=== PATIENT | female | born 1955 | race African-American/Black ===

== ENCOUNTER 2017-02-24 13:52 | Inpatient (IN) | payer MEDICAID, OTHER ==
--- NOTE | 2017-02-24 14:14 | EDPHY ---
H & P Stated Complaint: shaking, N and V starting today, type II DM, posterior DAMON Time Seen by Provider: 02/24/17 14:14 - Medical/Surgical History Hx Asthma: Yes Hx Chronic Respiratory Disease: Yes Hx Diabetes: Yes Hx Cardiac Disease: No Hx Renal Disease: No Hx Cirrhosis: No Hx Alcoholism: No Hx HIV/AIDS: No Hx Splenectomy or Spleen Trauma: No Other PMH: boarderline diabetic, asthma, HTN, mental health. PSH: hysterectomy - Social History Smoking Status: Never smoked Constitutional: Initial Vital Signs Heart Rate 77 02/24/17 14:02 Respiratory Rate 16 02/24/17 14:02 Blood Pressure 135/82 H 02/24/17 14:02 O2 Sat (%) 96 02/24/17 14:02 O2 Delivery Mode Room Air Allergies/Adverse Reactions: No Known Allergies Allergy (Unverified 04/17/15 13:58) Home Medications: Medication Instructions Recorded Albuterol [Proventil Inhaler HFA 2 puffs IH Q4 PRN 04/17/15 (*)] Atorvastatin Calcium [Lipitor 20 20 mg PO DAILY 04/17/15 mg (*)] Cholecalciferol Vit D3 [Vitamin D3 1,000 units PO DAILY 04/17/15 (*)] Ferrous Sulfate [Ferrous Sulf 325 325 mg PO DAILY 04/17/15 MG (*)] Fluoxetine HCl [Prozac 40 mg] 80 mg PO DAILY 04/17/15 Fluticasone/Salmeter 500/50Mcg 1 puffs IH BID 04/17/15 [Advair 500/50 (*)] Herbals/Supplements -Info Only 1 ea PO DAILY 04/17/15 Ibuprofen [Motrin (*)] 800 mg PO DAILY PRN 04/17/15 OXcarbazepine [Trileptal 300mg (*)] 600 mg PO DAILY 04/17/15 [place]-3 Fatty Acids [Fish Oil 1000 1,000 mg PO BID 04/17/15 mg (*)] Oxymetazoline HCl [Vicks Sinex] 1 spray EACHNARE DAILY PRN 04/17/15 buPROPion [Wellbutrin 75mg (*)] 75 mg PO DAILY 04/17/15 metFORMIN HCL [Glucophage 500 mg 500 mg PO DAILY 04/17/15 (*)] Cetirizine [ZyrTEC 10 mg (*)] 10 mg PO HS #30 tab 04/18/15 Ipratropium/Albuterol [Duoneb (*)] 3 ml IH QID #20 deyvial 04/18/15 amLODIPine BESYLATE [Norvasc 2.5 2.5 mg PO DAILY #30 tab 04/19/15 mg (*)] predniSONE 40 mg PO DAILY #6 tablet 04/19/15 Medical Decision Making ED Course/Re-evaluation: CHIEF COMPLAINT: Nausea, vomiting, shakiness. HISTORY OF PRESENT ILLNESS: The patient is a 61 y/o female who complains of nausea, vomiting, and shakiness onset this morning. She has a history of diabetes, hypertension, asthma, and obesity. She started to feel nauseated at work and subsequently had 3 episodes of bilious vomiting. Her symptoms continued to worsen and were associated with chills, diaphoresis, dizziness, and an intermittent throbbing occipital and frontal headache. Denies change in bowel movements, urinary symptoms, abdominal pain, dyspnea, numbness or weakness in limbs. She denies drinking too much water and has been eating and drinking normally. Denies significant medication changes. She notes she had bilateral lower leg pain that began 1 week ago, which she attributes to her varicose veins. She has been drinking about 8-16 oz of tonic water daily for her restless legs, which she discontinued 3 days ago. REVIEW OF SYSTEMS: A 10 point review of systems was performed and is negative with the exception of the elements mentioned in the history of present illness. PHYSICAL EXAM: HR, BP, O2 Sat, RR. Temp noted General Appearance: Obese, alert, well hydrated, appropriate, and non-toxic appearing. Head: Atraumatic without scalp tenderness or obvious injury Eyes: Pupils equal, round, reactive to light and accommodation, EOMI, no trauma , no injection. Nose: Atraumatic, no rhinorrhea, clear. Throat: Mucus membranes moist. Neck: Supple. Respiratory: No retractions, no distress, no wheezes, and no accessory muscle use. Lungs are clear to auscultation bilaterally. Cardiovascular: Regular rate and rhythm, no murmurs, rubs, or gallops. Good capillary refill all extremities. Gastrointestinal: Abdomen is soft, nontender, non-distended, no masses, no rebound, no guarding, no peritoneal signs. Musculoskeletal: Normal active ROM of all extremities, atraumatic. Neurological: Alert, appropriate, and interactive. Non-focal neuro. Skin: No rashes, good turgor, no nodules on palpation. Past medical history: Hyponatremia, diabetic, hemorrhoids, hypertension, asthma , varicose veins Past surgical history: Hysterectomy Family history: Noncontributory Social history: Employed, lives in [place], PCP: [facility] Prior medical records reviewed from admission on 04/17/15 for cough and hyponatremia. DIFFERENTIAL DIAGNOSIS: The differential diagnosis for the patient's nausea and vomiting included but was not limited to hyponatremia, gastroenteritis, gastritis, appendicitis, and medication side effect. MEDICAL DECISION MAKING: The patient is an obese 61 y/o female who presents with a one day history of nausea, vomiting, and general malaise. Her exam is unremarkable. Initial ISTAT shows hyponatremia at 123; we will be cautious with fluids to ensure her sodium repletion is slow. Plan for IV, lab work including: UA with osmolality. She will require admission for her hyponatremia and sodium repletion. 1520 Spoke with hospitalist service, Dr. Michael accepts admission of this patient for hyponatremia. - Data Points Laboratory Results: Laboratory Results 02/24/17 14:20 02/24/17 14:20 02/24/17 02/24/17 02/24/17 14:56 14:20 14:20 WBC 3.86 10^3/uL 10^3/uL (3.80-9.50) RBC 4.26 10^6/uL 10^6/uL (4.18-5.33) Hgb 13.1 g/dL g/dL (12.6-16.3) POC Hgb Hct 37.2 % L % (38.0-47.0) POC Hct MCV 87.3 fL fL (81.5-99.8) MCH 30.8 pg pg (27.9-34.1) MCHC 35.2 g/dL g/dL (32.4-36.7) RDW 12.8 % % (11.5-15.2) Plt Count 265 10^3/uL 10^3/uL (150-400) MPV 8.5 fL L fL (8.7-11.7) Neut % (Auto) 58.0 % % (39.3-74.2) Lymph % (Auto) 27.2 % % (15.0-45.0) [place] % (Auto) 8.8 % % (4.5-13.0) Eos % (Auto) 4.7 % % (0.6-7.6) Baso % (Auto) 1.0 % % (0.3-1.7) Nucleat RBC Rel Count 0.0 % % (0.0-0.2) Absolute Neuts (auto) 2.24 10^3/uL 10^3/uL (1.70-6.50) Absolute Lymphs (auto) 1.05 10^3/uL 10^3/uL (1.00-3.00) Absolute Monos (auto) 0.34 10^3/uL 10^3/uL (0.30-0.80) Absolute Eos (auto) 0.18 10^3/uL 10^3/uL (0.03-0.40) Absolute Basos (auto) 0.04 10^3/uL 10^3/uL (0.02-0.10) Absolute Nucleated RBC 0.00 10^3/uL 10^3/uL (0-0.01) Immature Gran % 0.3 % % (0.0-1.1) Immature Gran # 0.01 10^3/uL 10^3/uL (0.00-0.10) POC Sodium Sodium 120 mEq/L L mEq/L (134-144) POC Potassium Potassium 3.7 mEq/L mEq/L (3.5-5.2) POC Chloride Chloride 83 mEq/L L mEq/L (97-110) Carbon Dioxide 26 mEq/l mEq/l (22-31) Anion Gap 11 mEq/L mEq/L (8-16) POC BUN BUN 13 mg/dL mg/dL (7-23) Creatinine 0.7 mg/dL mg/dL (0.6-1.0) POC Creatinine Estimated GFR > 60 Glucose 96 mg/dL mg/dL (70-100) POC Glucose Calcium 9.8 mg/dL mg/dL (8.5-10.4) Total Bilirubin 0.5 mg/dL mg/dL (0.1-1.4) Conjugated Bilirubin 0.4 mg/dL mg/dL (0.0-0.5) Unconjugated Bilirubin 0.1 mg/dL mg/dL (0.0-1.1) AST 34 IU/L IU/L (14-46) ALT 54 IU/L H IU/L (9-52) Alkaline Phosphatase 102 IU/L IU/L (38-126) Total Protein 7.1 g/dL g/dL (6.3-8.2) Albumin 4.5 g/dL g/dL (3.5-5.0) Lipase 68.0 IU/L IU/L (23-300) Urine Color ALEXANDER Urine Appearance MODERATELY TURBID Urine pH 8.0 H (5.0-7.5) Ur Specific [place] 1.011 (1.002-1.030) Urine Protein NEGATIVE (NEGATIVE) Urine Ketones NEGATIVE (NEGATIVE) Urine Blood NEGATIVE (NEGATIVE) Urine Nitrate NEGATIVE (NEGATIVE) Urine Bilirubin NEGATIVE (NEGATIVE) Urine Urobilinogen NEGATIVE EU EU (0.2-1.0) Ur Leukocyte Esterase NEGATIVE (NEGATIVE) Urine Glucose NEGATIVE (NEGATIVE) 02/24/17 14:19 WBC RBC Hgb POC Hgb 15.0 gm/dL gm/dL (12.6-16.3) Hct POC Hct 44 % % (38-47) MCV MCH MCHC RDW Plt Count MPV Neut % (Auto) Lymph % (Auto) [place] % (Auto) Eos % (Auto) Baso % (Auto) Nucleat RBC Rel Count Absolute Neuts (auto) Absolute Lymphs (auto) Absolute Monos (auto) Absolute Eos (auto) Absolute Basos (auto) Absolute Nucleated RBC Immature Gran % Immature Gran # POC Sodium 123 mEq/L L mEq/L (134-144) Sodium POC Potassium 3.6 mEq/L mEq/L (3.3-5.0) Potassium POC Chloride 83 mEq/L L mEq/L (97-110) Chloride Carbon Dioxide Anion Gap POC BUN 12 mg/dL mg/dL (7-23) BUN Creatinine POC Creatinine 0.7 mg/dL mg/dL (0.6-1.0) Estimated GFR Glucose POC Glucose 104 mg/dL H mg/dL (70-100) Calcium Total Bilirubin Conjugated Bilirubin Unconjugated Bilirubin AST ALT Alkaline Phosphatase Total Protein Albumin Lipase Urine Color Urine Appearance Urine pH Ur Specific [place] Urine Protein Urine Ketones Urine Blood Urine Nitrate Urine Bilirubin Urine Urobilinogen Ur Leukocyte Esterase Urine Glucose Point of Care Test Results: 02/24/17 14:19 POC Sodium 123 L POC Potassium 3.6 POC Chloride 83 L POC BUN 12 POC Creatinine 0.7 POC Glucose 104 H Departure - Departure Disposition: [facility] Inpatient Acute Clinical Impression: Hyponatremia Nausea and vomiting Qualifiers: Vomiting type: bilious vomiting Qualified Code(s): R11.14 - Bilious vomiting Condition: Fair Report Scribed for: Mayank Max Report Scribed by: Chantal Stevenson Date of Report: 02/24/17 Time of Report: 14:32
[2017-02-24 14:35] LABS: % IMMATURE GRANULYOCYTES 0.3 % (0.0-1.1); ABSOLUTE IMMATURE GRANULOCYTES 0.01 10^3/uL (0.00-0.10); ADD DIFF? NO; ADD MORPH? NO; ADD SCAN? NO; ATYPICAL LYMPHOCYTE FLAG 0 (0-99); FRAGMENT RBC FLAG 0 (0-99); HEMATOCRIT 37.2 % (38.0-47.0); HEMOGLOBIN 13.1 g/dL (12.6-16.3); LEFT SHIFT FLG 0 (0-99); LIPEMIA HEMOLYSIS FLAG 90 (0-99); MEAN CELL HEMOGLOBIN 30.8 pg (27.9-34.1); MEAN CELL HEMOGLOBIN CONCENTR. 35.2 g/dL (32.4-36.7); MEAN CELL VOLUME 87.3 fL (81.5-99.8); MEAN PLATELET VOLUME 8.5 fL (8.7-11.7); PLATELET CLUMPS FLAG 0 (0-99); PLATELET COUNT 265 10^3/uL (150-400); RED BLOOD CELL COUNT 4.26 10^6/uL (4.18-5.33); RED CELL DISTRIBUTION WIDTH 12.8 % (11.5-15.2)
[2017-02-24 14:47] LABS: ALANINE AMINOTRANSFERASE 54 IU/L (9-52); ALBUMIN 4.5 g/dL (3.5-5.0); ALKALINE PHOSPHATASE 102 IU/L (38-126); ANION GAP 11 mEq/L (8-16); ASPARTATE AMINOTRANSFERASE 34 IU/L (14-46); BILIRUBIN,TOTAL 0.5 mg/dL (0.1-1.4); BILIRUBIN-CONJUGATED 0.4 mg/dL (0.0-0.5); BILIRUBIN-UNCONJUGATED 0.1 mg/dL (0.0-1.1); CALCIUM 9.8 mg/dL (8.5-10.4); CARBON DIOXIDE 26 mEq/l (22-31); CHLORIDE 83 mEq/L (97-110); CREATININE 0.7 mg/dL (0.6-1.0); GLOMERULAR FILTRATION RATE > 60; GLUCOSE 96 mg/dL (70-100); POTASSIUM 3.7 mEq/L (3.5-5.2); SODIUM 120 mEq/L (134-144); TOTAL PROTEIN 7.1 g/dL (6.3-8.2)
[2017-02-24 15:08] LABS: COLOR AMBER; LEUKOCYTE ESTERASE,URINE NEGATIVE (NEGATIVE); NITRITE,URINE NEGATIVE (NEGATIVE)
[2017-02-24 15:51] LABS: RANDOM URINE POTASSIUM 89.4 mEq/L (0.5-35.0)
[2017-02-24] MEDS ORDERED: oxyCODONE IR 5 MG TAB PO PRN (16:37)
[2017-02-24] MEDS ORDERED: ALBUTEROL 60 PUFFS/8 GM MDI IH PRN ×2 (16:37→16:39)
[2017-02-24] MEDS ORDERED: ONDANSETRON DISINTEGRATING 4 MG TAB PO PRN (16:37)
[2017-02-24] MEDS ORDERED: PROMETHAZINE HCL 25 MG/ML INJ IVP PRN (16:37)
[2017-02-24] MEDS ORDERED: ONDANSETRON 4 MG/2 ML VIAL IVP PRN (16:37)
[2017-02-24] MEDS ORDERED: OXYMETAZOLINE 30 ML NASAL SPRAY EACHNARE PRN (16:39)
[2017-02-24] MEDS ORDERED: ALBUTEROL 200 PUFFS/18 GM MDI IH PRN (16:55)
--- NOTE | 2017-02-24 17:54 | PDGENHP ---
History and Physical - Chief Complaint nausea/vomiting - History of Present Illness 61 yo F with PMH of HTN, obesity, DM and chronic hyponatremia presenting with 1 day of nausea and vomiting. Patient is a fairly poor historian but believes her sxs started either last night or today. She was at work today and it seemed to be getting worse, she was worried it could be her blood pressure, her sugars or something else so she came to the ER. Since then her sxs have essentially resolved. She is hungry. She has not had somnolence or confusion. She has no pain, no numbness or weakness. She has had her wellbutrin dose increased recently from 300 to 450 but no other changes in her medications recently. Today she has not been eating or drinking normally due to feeling ill but otherwise has had no change in her appetite or diet. History Information - Allergies/Home Medication List Allergies/Adverse Reactions: No Known Allergies Allergy (Unverified 04/17/15 13:58) Home Medications: Albuterol [Proventil Inhaler HFA (*)] 2 puffs IH Q4 PRN 04/17/15 [Last Taken 06/02] Atorvastatin Calcium [Lipitor 20 mg (*)] 20 mg PO DAILY 04/17/15 [Last Taken 06/02] Cholecalciferol Vit D3 [Vitamin D3 (*)] 1,000 units PO DAILY 04/17/15 [Last Taken 02/24/17] Fluoxetine HCl [Prozac 40 mg] 80 mg PO DAILY 04/17/15 [Last Taken 02/24/17] Fluticasone/Salmeter 500/50Mcg [Advair 500/50 (*)] 1 puffs IH BID 04/17/15 [ Last Taken 02/24/17] OXcarbazepine [Trileptal 300mg (*)] 600 mg PO DAILY 04/17/15 [Last Taken ] Oxymetazoline HCl [Vicks Sinex] 1 spray EACHNARE DAILY PRN 04/17/15 [Last Taken 02/24/17] metFORMIN HCL [Glucophage 500 mg (*)] 500 mg PO BIDMEAL 04/17/15 [Last Taken 06/02] Bupropion HCl [Wellbutrin Xl] 300 mg PO DAILY 02/24/17 [Last Taken 02/24/17] Lisinopril/Hctz 10/12.5 mg [Zestoretic/Prinzide 10/12.5MG (*)] 1 ea PO DAILY 06/02 [Last Taken 02/24/17] Montelukast Sodium [Singulair 10 mg (*)] 10 mg PO DAILY@1800 02/24/17 [Last Taken 02/23/17] buPROPion XL [Wellbutrin 150mg XL] 150 mg PO DAILY 02/24/17 [Last Taken 02/24/17 ] I have personally reviewed and updated: family history, medical history, social history, surgical history - Past Medical History diabetes type 2, hypertension, hyperlipidemia, psychiatric history (depression) Additional medical history: Restless leg syndrome - Surgical History Reports: hysterectomy - Family History Positive for: non-pertinent - Social History Smoking Status: Never smoked Alcohol Use: Rarely Drug Use: None Additional social history: working, lives independently Review of Systems ROS: 10pt was reviewed & negative except for what was stated in HPI & below Physical Exam Temp Pulse Resp BP Pulse Ox 36.8 C 76 22 H 150/100 H 95 02/24/17 16:26 02/24/17 16:26 02/24/17 16:26 02/24/17 16:26 02/24/17 16:26 Constitutional: no apparent distress, appears nourished, obese Eyes: PERRL, anicteric sclera Ears, Nose, Mouth, Throat: moist mucous membranes, hearing normal Cardiovascular: regular rate and rhythym, no murmur, rub, or gallop, No edema Respiratory: no respiratory distress, no rales or rhonchi, clear to auscultation Gastrointestinal: normoactive bowel sounds, soft, non-tender abdomen, no palpable masses Genitourinary: no bladder tenderness Skin: warm, normal color Musculoskeletal: full muscle strength, no muscle tenderness Neurologic: AAOx3, sensation intact bilaterally, CN II-XII Intact Psychiatric: interacting appropriately, not anxious, not encephalopathic Lab Data & Imaging Review 02/24/17 14:20 02/24/17 14:20 WBC 3.86 10^3/uL (3.80-9.50) 02/24/17 14:20 RBC 4.26 10^6/uL (4.18-5.33) 02/24/17 14:20 Hgb 13.1 g/dL (12.6-16.3) 02/24/17 14:20 POC Hgb 15.0 gm/dL (12.6-16.3) 02/24/17 14:19 Hct 37.2 % (38.0-47.0) L 02/24/17 14:20 POC Hct 44 % (38-47) 02/24/17 14:19 MCV 87.3 fL (81.5-99.8) 02/24/17 14:20 MCH 30.8 pg (27.9-34.1) 02/24/17 14:20 MCHC 35.2 g/dL (32.4-36.7) 02/24/17 14:20 RDW 12.8 % (11.5-15.2) 02/24/17 14:20 Plt Count 265 10^3/uL (150-400) 02/24/17 14:20 MPV 8.5 fL (8.7-11.7) L 02/24/17 14:20 Neut % (Auto) 58.0 % (39.3-74.2) 02/24/17 14:20 Lymph % (Auto) 27.2 % (15.0-45.0) 02/24/17 14:20 [place] % (Auto) 8.8 % (4.5-13.0) 02/24/17 14:20 Eos % (Auto) 4.7 % (0.6-7.6) 02/24/17 14:20 Baso % (Auto) 1.0 % (0.3-1.7) 02/24/17 14:20 Nucleat RBC Rel Count 0.0 % (0.0-0.2) 02/24/17 14:20 Absolute Neuts (auto) 2.24 10^3/uL (1.70-6.50) 02/24/17 14:20 Absolute Lymphs (auto) 1.05 10^3/uL (1.00-3.00) 02/24/17 14:20 Absolute Monos (auto) 0.34 10^3/uL (0.30-0.80) 02/24/17 14:20 Absolute Eos (auto) 0.18 10^3/uL (0.03-0.40) 02/24/17 14:20 Absolute Basos (auto) 0.04 10^3/uL (0.02-0.10) 02/24/17 14:20 Absolute Nucleated RBC 0.00 10^3/uL (0-0.01) 02/24/17 14:20 Immature Gran % 0.3 % (0.0-1.1) 02/24/17 14:20 Immature Gran # 0.01 10^3/uL (0.00-0.10) 02/24/17 14:20 POC Sodium 123 mEq/L (134-144) L 02/24/17 14:19 Sodium 120 mEq/L (134-144) L 02/24/17 14:20 POC Potassium 3.6 mEq/L (3.3-5.0) 02/24/17 14:19 Potassium 3.7 mEq/L (3.5-5.2) 02/24/17 14:20 POC Chloride 83 mEq/L (97-110) L 02/24/17 14:19 Chloride 83 mEq/L (97-110) L 02/24/17 14:20 Carbon Dioxide 26 mEq/l (22-31) 02/24/17 14:20 Anion Gap 11 mEq/L (8-16) 02/24/17 14:20 POC BUN 12 mg/dL (7-23) 02/24/17 14:19 BUN 13 mg/dL (7-23) 02/24/17 14:20 Creatinine 0.7 mg/dL (0.6-1.0) 02/24/17 14:20 POC Creatinine 0.7 mg/dL (0.6-1.0) 02/24/17 14:19 Estimated GFR > 60 02/24/17 14:20 Glucose 96 mg/dL (70-100) 02/24/17 14:20 POC Glucose 104 mg/dL (70-100) H 02/24/17 14:19 Calcium 9.8 mg/dL (8.5-10.4) 02/24/17 14:20 Total Bilirubin 0.5 mg/dL (0.1-1.4) 02/24/17 14:20 Conjugated Bilirubin 0.4 mg/dL (0.0-0.5) 02/24/17 14:20 Unconjugated Bilirubin 0.1 mg/dL (0.0-1.1) 02/24/17 14:20 AST 34 IU/L (14-46) 02/24/17 14:20 ALT 54 IU/L (9-52) H 02/24/17 14:20 Alkaline Phosphatase 102 IU/L (38-126) 02/24/17 14:20 Total Protein 7.1 g/dL (6.3-8.2) 02/24/17 14:20 Albumin 4.5 g/dL (3.5-5.0) 02/24/17 14:20 Lipase 68.0 IU/L (23-300) 02/24/17 14:20 Urine Color ALEXANDER 02/24/17 14:56 Urine Appearance MODERATELY TURBID 02/24/17 14:56 Urine pH 8.0 (5.0-7.5) H 02/24/17 14:56 Ur Specific [place] 1.011 (1.002-1.030) 02/24/17 14:56 Urine Protein NEGATIVE (NEGATIVE) 02/24/17 14:56 Urine Ketones NEGATIVE (NEGATIVE) 02/24/17 14:56 Urine Blood NEGATIVE (NEGATIVE) 02/24/17 14:56 Urine Nitrate NEGATIVE (NEGATIVE) 02/24/17 14:56 Urine Bilirubin NEGATIVE (NEGATIVE) 02/24/17 14:56 Urine Urobilinogen NEGATIVE EU (0.2-1.0) 02/24/17 14:56 Ur Leukocyte Esterase NEGATIVE (NEGATIVE) 02/24/17 14:56 Urine Osmolality 473 mosmo/kg (300-900) 02/24/17 Unknown Ur Random Sodium 102 mEq/L (30-90) H 02/24/17 Unknown Ur Random Potassium 89.4 mEq/L (0.5-35.0) H 02/24/17 Unknown Urine Glucose NEGATIVE (NEGATIVE) 02/24/17 14:56 Assessment & Plan Assessment: Hyponatremia (Acute) Nausea and vomiting (Acute) 61 yo F with PMH of DM, HTN, chronic hyponatremia presenting with acute on chronic hyponatremia/n/v # acute on chronic hyponatremia: it appears that her usual baseline Na is closer to 128, currently presenting at 120. Initial labs most c/w SIADH with urine sodium of 120 and urine osmols > 400. Certainly has RF for SIADH with both oxcarbazepine and fluoxetine on board known to cause SIADH. Possibly exacerbated by being slightly volume down in setting of n/v. Will monitor for now without continued fluids. If not improving on it's own now that patient is eating/drinking will start fluid restriction. She has been doing well on her current medications so very reluctant to change them. # depression: as above, treated with fluoxetine and oxcarbazepine and wellbutrin , recently increased wellbutrin dose. She notes that she has been symptomatically well controlled recently and would be very reluctant to change her regimen # DM: continue metformin, BS have been wnl here. # HTN: will continue amlodipine and lisinopril but hold HCTZ which is likely contributing to problem #1 # HLD: continue atorvastatin # dispo: observation status, will likely require < 48 hours stay for eval/mgmt of above Patient new to my care. Old records reviewed and summarized as above. Care plan reviewed with ER doctor including plans for w/u of hyponatremia.
[2017-02-24] MEDS: metFORMIN HCL 500 MG TAB PO SCH (18:00)
[2017-02-24] MEDS: MONTELUKAST SODIUM 10 MG TAB PO SCH (18:00)
[2017-02-24] MEDS: IPRATROPIUM/ALBUTEROL 3 ML DEYVIAL IH SCH (20:19)
[2017-02-24] MEDS: FLUTICASONE/SALMETER 500/50MCG DISKUS IH SCH (20:32)
[2017-02-24] MEDS: CETIRIZINE 10 MG TAB PO SCH (20:55)
[2017-02-25 04:47] LABS: % IMMATURE GRANULYOCYTES 0.2 % (0.0-1.1); ABSOLUTE IMMATURE GRANULOCYTES 0.01 10^3/uL (0.00-0.10); ADD DIFF? NO; ADD MORPH? NO; ADD SCAN? NO; ATYPICAL LYMPHOCYTE FLAG 10 (0-99); FRAGMENT RBC FLAG 0 (0-99); HEMATOCRIT 36.1 % (38.0-47.0); HEMOGLOBIN 12.4 g/dL (12.6-16.3); LEFT SHIFT FLG 0 (0-99); LIPEMIA HEMOLYSIS FLAG 90 (0-99); MEAN CELL HEMOGLOBIN 30.6 pg (27.9-34.1); MEAN CELL HEMOGLOBIN CONCENTR. 34.3 g/dL (32.4-36.7); MEAN CELL VOLUME 89.1 fL (81.5-99.8); MEAN PLATELET VOLUME 8.3 fL (8.7-11.7); PLATELET CLUMPS FLAG 20 (0-99); PLATELET COUNT 240 10^3/uL (150-400); RED BLOOD CELL COUNT 4.05 10^6/uL (4.18-5.33); RED CELL DISTRIBUTION WIDTH 13.1 % (11.5-15.2)
[2017-02-25 05:04] LABS: ANION GAP 8 mEq/L (8-16); CALCIUM 9.4 mg/dL (8.5-10.4); CARBON DIOXIDE 25 mEq/l (22-31); CHLORIDE 91 mEq/L (97-110); CREATININE 0.7 mg/dL (0.6-1.0); GLOMERULAR FILTRATION RATE > 60; GLUCOSE 118 mg/dL (70-100); MAGNESIUM 1.7 mg/dL (1.6-2.3); POTASSIUM 3.6 mEq/L (3.5-5.2); SODIUM 124 mEq/L (134-144)
[2017-02-25] MEDS: IPRATROPIUM/ALBUTEROL 3 ML DEYVIAL IH SCH ×4 (05:51→21:35)
[2017-02-25] MEDS ORDERED: FLUOXETINE HCL 80 MG PO SCH (09:00)
[2017-02-25] MEDS ORDERED: NON-FORMULARY NEW DRUG (Bupropion Hcl [Wellbutrin Xl] 300 MG) PO SCH (09:00)
[2017-02-25] MEDS ORDERED: buPROPion XL 150 MG TAB PO SCH (09:00)
[2017-02-25] MEDS: FLUoxetine 20 MG CAP PO SCH (09:23)
[2017-02-25] MEDS: ATORVASTATIN CALCIUM 20 MG TAB PO SCH (09:25)
[2017-02-25] MEDS: OXcarbazepine 300 MG TAB PO SCH (09:25)
[2017-02-25] MEDS: CHOLECALCIFEROL VIT D3 1,000 UNITS TAB PO SCH (09:25)
[2017-02-25] MEDS: metFORMIN HCL 500 MG TAB PO SCH ×2 (09:25→18:20)
[2017-02-25] MEDS: LISINOPRIL 10 MG TAB PO SCH (09:25)
[2017-02-25] MEDS: buPROPion XL 150 MG TAB PO SCH (09:26)
[2017-02-25] MEDS: FLUTICASONE/SALMETER 500/50MCG DISKUS IH SCH ×2 (11:20→21:35)
--- NOTE | 2017-02-25 14:16 | HOSPPROG ---
Hospitalist Progress Note Assessment/Plan: # acute on chronic hyponatremia- baselines near 128 patient presented with a sodium of 120 - 124 this am On multiple medications which provoke hyponatremia including hydrochlorothiazide and psychiatric meds - continue to hold hydrochlorothiazide - fluid restriction to 1.5 L (based on history sounds like patient does this naturally at home) - recheck in a.m. # hypertension- systolic blood pressures in 140's overnight Telemetry (personally reviewed and interpreted) sinus rhythm - continue home meds - continue hold hydrochlorothiazide # diabetes- adequate control [facility] blood sugar 80-119 - continue home medications # depression- severe- patient followed closely by outpatient mental health providers - continue home medications # prophylaxis Lovenox # diet regular # disposition greater than 2 midnights as the patient requires ongoing monitoring and medication titration for severe hyponatremia I have discussed the case with admitting physician- agree cause is likely multifactorial secondary to multiple medications Subjective: feeling better Objective: Vital Signs Temp Pulse Resp BP Pulse Ox 37.0 C 91 16 176/84 H 94 02/25/17 10:45 02/25/17 11:20 02/25/17 11:20 02/25/17 10:45 02/25/17 11:20 Laboratory Results 02/25/17 04:39 02/25/17 04:39 02/24/17 02/25/17 02/26/17 05:59 05:59 05:59 Intake Total 450 500 Output Total 1900 1600 Balance -1450 -1100 - Physical Exam Constitutional: obese Eyes: anicteric sclera Ears, Nose, Mouth, Throat: moist mucous membranes Cardiovascular: regular rate and rhythym Respiratory: no respiratory distress, no rales or rhonchi Gastrointestinal: normoactive bowel sounds, soft, non-tender abdomen Genitourinary: no bladder fullness Skin: warm Musculoskeletal: No asymmetric calves Neurologic: AAOx3 Psychiatric: flat affect Lymph, Heme, Immunologic: no cervical LAD ICD10 Worksheet Patient Problems: Problems Problem Status Onset Hyponatremia Acute Nausea and vomiting Acute
[2017-02-25] MEDS: ACETAMINOPHEN 325 MG TAB PO PRN (14:48)
[2017-02-25] MEDS: MONTELUKAST SODIUM 10 MG TAB PO SCH (18:20)
[2017-02-25] MEDS: CETIRIZINE 10 MG TAB PO SCH (21:01)
[2017-02-26 04:37] LABS: ANION GAP 10 mEq/L (8-16); CALCIUM 9.3 mg/dL (8.5-10.4); CARBON DIOXIDE 24 mEq/l (22-31); CHLORIDE 96 mEq/L (97-110); CREATININE 0.7 mg/dL (0.6-1.0); GLOMERULAR FILTRATION RATE > 60; GLUCOSE 83 mg/dL (70-100); POTASSIUM 4.5 mEq/L (3.5-5.2); SODIUM 130 mEq/L (134-144)
[2017-02-26] MEDS: IPRATROPIUM/ALBUTEROL 3 ML DEYVIAL IH SCH ×2 (05:26→11:13)
[2017-02-26] MEDS: FLUoxetine 20 MG CAP PO SCH (08:33)
[2017-02-26] MEDS: buPROPion XL 150 MG TAB PO SCH (08:33)
[2017-02-26] MEDS: metFORMIN HCL 500 MG TAB PO SCH (08:33)
[2017-02-26] MEDS: OXcarbazepine 300 MG TAB PO SCH (08:34)
[2017-02-26] MEDS: ATORVASTATIN CALCIUM 20 MG TAB PO SCH (08:34)
[2017-02-26] MEDS: CHOLECALCIFEROL VIT D3 1,000 UNITS TAB PO SCH (08:34)
[2017-02-26] MEDS: FLUTICASONE/SALMETER 500/50MCG DISKUS IH SCH (08:34)
[2017-02-26] MEDS: LISINOPRIL 10 MG TAB PO SCH (08:34)
[2017-02-26] MEDS: ACETAMINOPHEN 325 MG TAB PO PRN (08:40)
[2017-02-26 12:02] VITALS: BP 154/114; PULSE 87; RESP 18; TEMP 98.4; O2SAT 96
--- NOTE | 2017-02-26 19:12 | GDS ---
[f rep st] DISCHARGE SUMMARY DISCHARGE DIAGNOSES: 1. Acute on chronic hyponatremia. 2. Hypertension. 3. Diabetes. 4. Severe depression. HISTORY OF PRESENT ILLNESS: This is a 61-year-old female who presented on 02/24/2017 with weakness. For details of the patient's presentation, please see the history and physical dictated 02/24/2017 . HOSPITAL COURSE BY ISSUE: Acute on chronic hyponatremia: Patient presented with sodium 120, which was thought likely multifactorial, including hydrochlorothiazide and chronic medications. The patie nt had her hydrochlorothiazide held and was monitored. She has had return of her sodium to baseline sodium of 130. The patient is feeling well on the day of disposition and is safe for discharge [place] with home PT. The patient is not to take hydrochlorothiazide ongoing and has been provided a pres cription for outpatient lisinopril alone. She is to follow with her outpatient provider for a lab c heck in approximately 1-2 weeks. PENDING STUDIES AT THE TIME OF DICTATION: None. I spent greater than 30 minutes in the planning and coordination of this discharge. /[id number]/MODL
== END 2017-02-26 15:26 | disposition home or self-care (01) | DRG 641 ==
LOC: INTOOBSV 15:22 → F2W 16:14 → OBSVTOIN 02-25 14:24
PROVIDERS: ADMIT Internal Medicine; ATTEND Internal Medicine
DX: E87.1 Hypo-osmolality and hyponatremia (principal); I10 Essential (primary) hypertension; E11.9 Type 2 diabetes mellitus without complications; F33.2 Major depressive disorder, recurrent severe without psychotic features; J45.909 Unspecified asthma, uncomplicated; E66.9 Obesity, unspecified; Z79.84 Long term (current) use of oral hypoglycemic drugs
CPT/HCPCS: 82947-QW; 97116-GP; 97162-GP; 97166-GO; 97530-GP; 97535-GO; G0378

== ENCOUNTER 2017-12-30 10:48 | Emergency (ER) | payer MEDICAID ==
[2017-12-30 11:00] VITALS: BP 136/86
--- NOTE | 2017-12-30 11:02 | EDPHY ---
H & P Stated Complaint: L thigh lac Time Seen by Provider: 12/30/17 11:01 HPI/ROS: HPI: This is a 62-year-old female who presents with Chief Complaint: Left thigh laceration Location: Left thigh Quality: Laceration Duration: Prior to arrival Signs and Symptoms: + bleeding, no radiation, no numbness, no weakness, no tingling, no incontinence, no decreased range of motion, no swelling, no pain, no fever Timing: Acute Severity: Mild Context: Patient is unsure of her tetanus status, presents with accidentally cutting her left inner thigh it with knives that she purchased at [employer]. She had a bag of the night is on her lab and was shoveling through it when the tip of the knife poke through and cut her left inner thigh. She reported that it bled "pretty bad" and took a while to stop the bleeding. Denies paresthesias , weakness, decreased range of motion Modifying Factors: Direct pressure Comment: ROS: see HPI Constitutional: No fever, no chills, no weight loss Eyes: No blurred vision Respiratory: No shortness of breath, no cough Cardiovascular: No chest pain Gastrointestinal: No nausea, no vomiting no diarrhea Genitourinary: No dysuria Extremities: No myalgias Neurologic: No weakness, no numbness Skin: No rashes Hematologic: No bruising, no bleeding MEDICAL/SURGICAL/SOCIAL HISTORY: Medical history: borderline diabetic, asthma, HTN, mental health PSH: hysterectomy Social history: Retired CONSTITUTIONAL: extremely polite and appropriate female, wake and alert, no obvious distress HEENT: Atraumatic and normocephalic. EXTREMITIES: 2/2 pulses, strength 5/5, 1/2 inch superficial linear laceration to left inner thigh, no active bleeding. DIP/PIP/MCP flexion/extension intact with good light touch sensation. no deformities, no clubbing, no cyanosis or edema. NEUROLOGICAL: no focal neuro deficits. GCS 15. Light touch sensation intact. SKIN: Warm and dry, no erythema. no rash. Good capillary refill. Source: Patient Exam Limitations: No limitations - Personal History Current Tetanus/Diphtheria Vaccine: Unsure Current Tetanus Diphtheria and Acellular Pertussis (TDAP): Unsure - Medical/Surgical History Hx Asthma: Yes Hx Chronic Respiratory Disease: Yes Hx Diabetes: Yes Hx Cardiac Disease: No Hx Renal Disease: No Hx Cirrhosis: No Hx Alcoholism: No Hx HIV/AIDS: No Hx Splenectomy or Spleen Trauma: No Other PMH: boarderline diabetic, asthma, HTN, mental health. PSH: hysterectomy - Social History Smoking Status: Never smoked Constitutional: Initial Vital Signs Temperature (C) 36.7 C 12/30/17 10:57 Heart Rate 84 12/30/17 10:57 Respiratory Rate 18 12/30/17 10:57 Blood Pressure 136/86 H 12/30/17 10:57 O2 Sat (%) 92 12/30/17 10:57 O2 Delivery Mode Room Air Allergies/Adverse Reactions: No Known Allergies Allergy (Unverified 04/17/15 13:58) Home Medications: Medication Instructions Recorded Albuterol [Proventil Inhaler HFA 2 puffs IH Q4 PRN 04/17/15 (*)] Atorvastatin Calcium [Lipitor 20 20 mg PO DAILY 04/17/15 mg (*)] Cholecalciferol Vit D3 [Vitamin D3 1,000 units PO DAILY 04/17/15 (*)] Fluoxetine HCl [Prozac 40 mg] 80 mg PO DAILY 04/17/15 Fluticasone/Salmeter 500/50Mcg 1 puffs IH BID 04/17/15 [Advair 500/50 (*)] OXcarbazepine [Trileptal 300mg (*)] 600 mg PO DAILY 04/17/15 Oxymetazoline HCl [Vicks Sinex] 1 spray EACHNARE DAILY PRN 04/17/15 metFORMIN HCL [Glucophage 500 mg 500 mg PO BIDMEAL 04/17/15 (*)] Cetirizine [ZyrTEC 10 mg (*)] 10 mg PO HS #30 tab 04/18/15 Ipratropium/Albuterol [Duoneb (*)] 3 ml IH QID #20 deyvial 04/18/15 amLODIPine BESYLATE [Norvasc 2.5 2.5 mg PO DAILY #30 tab 04/19/15 mg (*)] Bupropion HCl [Wellbutrin Xl] 300 mg PO DAILY 02/24/17 Montelukast Sodium [Singulair 10 10 mg PO DAILY@1800 02/24/17 mg (*)] buPROPion XL [Wellbutrin 150mg XL] 150 mg PO DAILY 02/24/17 Herbals/Supplements -Info Only 1 ea PO DAILY 02/25/17 celeCOXIB [CeleBREX] 100 mg PO DAILY 02/25/17 Lisinopril [Zestril 10 mg (*)] 10 mg PO DAILY #30 tab 02/26/17 Medical Decision Making Procedures: Procedure: Laceration repair. Verbal consent was obtained from the patient. The 1/2 inch, simple, superficial laceration on the left inner thigh was anesthetized in the usual fashion 3 mL of 1% lidocaine with epinephrine. The wound was irrigated, draped and explored to its base with a gloved finger. There were no deep structures involved. No tendon injury was identified. The wound was repaired with Dermabond. The procedure was performed by myself. ED Course/Re-evaluation: Tetanus booster given. 4 mL of 1% lidocaine with epinephrine given for local anesthesia. Cleaned with soap and water and irrigated. Dermabond used to close laceration. No indication for antibiotics. No signs of neurovascular compromise/tenting of skin/compartment syndrome/ extremities and joints examined above and below area of concern and are neurovascularly intact. This patient was seen under the supervision of my secondary supervising physician. I evaluated care for this patient independently. Discussed this patient with Dr. Ryan who did not see the patient. Differential Diagnosis: Differential diagnosis includes but is not limited to puncture injury, laceration, nerve injury, muscle injury. - Data Points Medications Given: Discontinued Medications Diphtheria/Tetanus/Acell Pertussis (Boostrix) 0.5 ml IM .ONCE ONE Stop: 12/30/17 11:40 Last Admin: 12/30/17 12:05 Dose: 0.5 ml Departure - Departure Disposition: Home, Routine, Self-Care Clinical Impression: Laceration of left thigh without complication Qualifiers: Encounter type: initial encounter Qualified Code(s): S71.112A - Laceration without foreign body, left thigh, initial encounter Condition: Good Instructions: Laceration (ED), Skin Adhesive Care (ED) Additional Instructions: Keep the dressing dry and in place for 48 hours. After 48 hours, you may remove the dressing; wash the site daily with mild soap and water; then pat dry. Allow the skin glue to slowly dissolve over time. Apply topical [id number] antibiotic ointment daily and clean sterile dressing until fully healed. Return to the ER immediately if you experience redness, red streaks, have fevers /chills, flu like symptoms, limited range of motion, or any other symptoms that concern you. Referrals: Preethi Pierce MD [Primary Care Provider] - As per Instructions
[2017-12-30] MEDS ORDERED: TDAP ADULT 0.5 ML INJ (BOOSTRIX) IM ONE (11:39)
[2017-12-30] MEDS ORDERED: SKIN ADHESIVE (DERMABOND) 1 EACH TP ONE (11:51)
== END 2017-12-30 12:30 | disposition home or self-care (01) ==
PROC: 0HQJXZZ Repair Left Upper Leg Skin, External Approach (ICD-10-PCS; principal; 2017-12-30)
DX: S71.112A Laceration without foreign body, left thigh, initial encounter (principal); J45.909 Unspecified asthma, uncomplicated; I10 Essential (primary) hypertension; Z23 Encounter for immunization; W45.8XXA Other foreign body or object entering through skin, initial encounter

== ENCOUNTER 2018-04-26 17:26 | Emergency (ER) | payer MEDICAID ==
[2018-04-26] MEDS ORDERED: methylPREDNISolone SOD SUCC 125 MG/2 ML VIAL IVP ONE (17:40)
[2018-04-26] MEDS ORDERED: EPINEPHrine 1 MG/ML INJ IM ONE (17:40)
[2018-04-26] MEDS ORDERED: RANITIDINE 50 MG/2 ML VIAL IVP ONE (17:40)
--- NOTE | 2018-04-26 17:40 | EDPHY ---
H & P Stated Complaint: Pt bit on upper lip, swelling s airway inv, 75mg diphen PO Time Seen by Provider: 04/26/18 17:36 HPI/ROS: HPI: This is a 62-year-old female who presents with Chief Complaint: Pt bit on upper lip, swelling s airway inv, 75mg diphen PO Location: Upper lip Quality: Swelling Duration: 3 and 0.5 hr prior to arrival Signs and Symptoms: No wheezing, no difficulty swallowing, no difficulty talking, no pruritus, no shortness of breath, no cough, no chest pain, no palpitations, no carpal pedal spasms, no nausea, no vomiting, no rash Timing: Rapid onset Severity: Moderate Context: Patient has a history of pre diabetic, hypertension, asthma presents from her place of employment at [employer] with being bit by some type of insect on her upper lip and within 30 min to 1 hr her upper lip began to swell. This swelling increased over the last 2 and 0.5 hr. She took 75 mg of Benadryl 30 min prior to arrival. She drove herself to the emergency room. Patient denies any previous environmental or seasonal allergies. Has been taking lisinopril for years. She is talking and swallowing without any difficulties. Modifying Factors: See above Comment: ROS: A comprehensive 10 system review of systems is otherwise negative aside from elements mentioned in the history of present illness. MEDICAL/SURGICAL/SOCIAL HISTORY: Medical history: borderline diabetic, asthma, HTN, mental health Surgical history: Hysterectomy Social history: Never smoked. CONSTITUTIONAL: Polite and cooperative, elderly black female, awake and alert, no obvious distress HEENT: Atraumatic and normocephalic, PERRL, EOMI. Nares patent; no rhinorrhea; no nasal mucosal edema. Tympanic membranes clear. Upper lip shows moderate swelling-2 times the size of the bottom lip; Oropharynx clear, no postpharyngeal edema, and moist pink mucosa. Airway patent. No lymphadenopathy. No meningismus. Cardiovascular: Normal S1/S2, regular rate, regular rhythm, without murmur rub or gallop. PULMONARY/CHEST: Symmetrical and nontender. Clear to auscultation bilaterally. Good air movement. No accessory muscle usage. ABDOMEN: Soft, nondistended, nontender, no rebound, no guarding, no peritoneal signs, no masses or organomegaly. No CVAT. EXTREMITIES: 2/2 pulses, strength 5/5, no deformities, no clubbing, no cyanosis or edema. NEUROLOGICAL: no focal neuro deficits. GCS 15. SKIN: Warm and dry, no erythema. no rash. Good capillary refill. Source: Patient Exam Limitations: No limitations - Personal History Current Tetanus/Diphtheria Vaccine: Unsure - Medical/Surgical History Hx Asthma: Yes Hx Chronic Respiratory Disease: Yes Hx Diabetes: Yes Hx Cardiac Disease: No Hx Renal Disease: No Hx Cirrhosis: No Hx Alcoholism: No Hx HIV/AIDS: No Hx Splenectomy or Spleen Trauma: No Other PMH: borderline diabetic, asthma, HTN, mental health. PSH: hysterectomy - Social History Smoking Status: Never smoked Constitutional: Initial Vital Signs Temperature (C) 36.7 C 04/26/18 17:28 Heart Rate 89 04/26/18 17:28 Respiratory Rate 16 04/26/18 17:28 Blood Pressure 146/88 H 04/26/18 17:28 O2 Sat (%) 95 04/26/18 17:28 O2 Delivery Mode Room Air Allergies/Adverse Reactions: No Known Allergies Allergy (Verified 04/26/18 17:28) Home Medications: Medication Instructions Recorded Albuterol [Proventil Inhaler HFA 2 puffs IH Q4 PRN 04/17/15 (*)] Atorvastatin Calcium [Lipitor 20 20 mg PO DAILY 04/17/15 mg (*)] Cholecalciferol Vit D3 [Vitamin D3 1,000 units PO DAILY 04/17/15 (*)] Fluoxetine HCl [Prozac 40 mg] 80 mg PO DAILY 04/17/15 Fluticasone/Salmeter 500/50Mcg 1 puffs IH BID 04/17/15 [Advair 500/50 (*)] OXcarbazepine [Trileptal 300mg (*)] 600 mg PO DAILY 04/17/15 Oxymetazoline HCl [Vicks Sinex] 1 spray EACHNARE DAILY PRN 04/17/15 metFORMIN HCL [Glucophage 500 mg 500 mg PO BIDMEAL 04/17/15 (*)] Cetirizine [ZyrTEC 10 mg (*)] 10 mg PO HS #30 tab 04/18/15 Ipratropium/Albuterol [Duoneb (*)] 3 ml IH QID #20 deyvial 04/18/15 amLODIPine BESYLATE [Norvasc 2.5 2.5 mg PO DAILY #30 tab 04/19/15 mg (*)] Bupropion HCl [Wellbutrin Xl] 300 mg PO DAILY 02/24/17 Montelukast Sodium [Singulair 10 10 mg PO DAILY@1800 02/24/17 mg (*)] buPROPion XL [Wellbutrin 150mg XL] 150 mg PO DAILY 02/24/17 Herbals/Supplements -Info Only 1 ea PO DAILY 02/25/17 celeCOXIB [CeleBREX] 100 mg PO DAILY 02/25/17 Lisinopril [Zestril 10 mg (*)] 10 mg PO DAILY #30 tab 02/26/17 Ranitidine HCl [Zantac] 150 mg PO BID 3 Days tablet 04/26/18 methylPREDNISolone [Medrol Dose 1 each PO AD #0 ea 04/26/18 Terry] Medical Decision Making ED Course/Re-evaluation: Vital signs reviewed and stable upon arrival. IV access obtained and placed on potline monitor. No signs of airway compromise/respiratory distress/anaphylaxis. 1745: Patient given IV Benadryl, IV Solu-Medrol, IV Zantac, and IV epinephrine 6: Reassessed patient. No improvement in symptoms but no progression. Advised patient that I recommend inpatient admission for observation for lip angioedema secondary to SALUD-inhibitor. Patient politely refuses despite my recommendation. She understands and verbalizes complete understanding acceptance of risks including airway compromise, respiratory distress and anaphylaxis and even . Patient was given a prescription for Medrol Dosepak, Zantac twice a day x 3 days and scheduled Benadryl. She was instructed to return to the emergency room immediately with any worsening of symptoms. She understands that she is to stop taking lisinopril and follow up with her primary care provider in the next 1-2 days for blood pressure medication change. This patient was seen under the supervision of my secondary supervising physician. I evaluated care for this patient independently. Discussed this patient with Dr. Pérez. Differential Diagnosis: Differential diagnosis includes but is not limited to allergic reaction, anaphylaxis, angioedema, local allergic reaction. - Data Points Medications Given: Discontinued Medications Diphenhydramine HCl (Benadryl Injection) 50 mg IVP EDNOW ONE Stop: 04/26/18 17:41 Last Admin: 04/26/18 18:15 Dose: 50 mg Epinephrine HCl (Epinephrine) 0.3 mg IM EDNOW ONE Stop: 04/26/18 17:41 Last Admin: 04/26/18 18:16 Dose: 0.3 mg Methylprednisolone Sodium Succinate (Solu-Medrol) 125 mg IVP EDNOW ONE Stop: 04/26/18 17:41 Last Admin: 04/26/18 18:08 Dose: 125 mg Ranitidine HCl (Zantac) 50 mg IVP EDNOW ONE Stop: 04/26/18 17:41 Last Admin: 04/26/18 18:08 Dose: 50 mg Departure - Departure Disposition: Home, Routine, Self-Care Clinical Impression: SALUD inhibitor-aggravated angioedema Qualifiers: Encounter type: initial encounter Qualified Code(s): T78.3XXA - Angioneurotic edema, initial encounter Condition: Good Instructions: Angioedema (ED) Additional Instructions: Please take Zantac 150 mg twice daily x3 days. Take Medrol Dosepak as directed; starting tomorrow morning. Take Benadryl 50 mg every 6 hr as needed for allergic reaction, swelling. Stop taking lisinopril as this likely caused the swelling of your lips. Call primary care provider in the morning to make an appointment in the next 1 day without fail to discuss a replacement blood pressure medication. It was recommended that you are admitted to the hospital for observation to ensure the swelling decreases and does not increase. Return at once for any worsening symptoms or concerns. You have verbalized complete understanding and acceptance of the risks associated with not being admitted to the hospital, including, but not limited to, , chronic & permanent disability and impairment, and other circumstances and consequences too numerous to mention herein Referrals: PCP Not In,Dictionary [Medical Doctor] - As per Instructions Prescriptions: methylPREDNISolone [Medrol Dose Terry] 1 each PO AD #0 ea Ranitidine HCl [Zantac] 150 mg PO BID 3 Days tablet
[2018-04-26 19:42] VITALS: BP 145/76
== END 2018-04-26 19:42 | disposition home or self-care (01) ==
DX: T78.3XXA Angioneurotic edema, initial encounter (principal); Y92.513 Shop (commercial) as the place of occurrence of the external cause; Y99.0 Civilian activity done for income or pay
CPT/HCPCS: 96374; J0171; J1200; J2780; J2930

== ENCOUNTER → 2018-06-12 | Outpatient (CLI) | payer MEDICAID | LOC: FCPNEURO 23:38 | PROVIDERS: ATTEND Internal Medicine Sleep Medicine | DX: G47.33 Obstructive sleep apnea (adult) (pediatric) (principal); G47.34 Idiopathic sleep related nonobstructive alveolar hypoventilation; G47.61 Periodic limb movement disorder ==

== ENCOUNTER 2018-09-11 13:08 | Inpatient (IN) | payer MEDICAID ==
[2018-09-11] MEDS ORDERED: methylPREDNISolone SOD SUCC 125 MG/2 ML VIAL IVP ONE (13:34)
[2018-09-11] MEDS ORDERED: IPRATROPIUM/ALBUTEROL 3 ML DEYVIAL IH ONE (13:34)
[2018-09-11] MEDS ORDERED: NS 1,000 ML IV ONE (13:34)
--- NOTE | 2018-09-11 13:37 | EDPHY ---
General - History Smoking Status: Never smoked Time Seen by Provider: 09/11/18 13:24 Narrative: CLINICAL IMPRESSION: Hypoxia, right upper lobe infiltrate, cardiomegaly, hyponatremia ASSESSMENT/PLAN: 62-year-old morbidly obese woman with reported past medical history of asthma, hypertension, hypercholesterolemia and mental health history presents to the emergency department with 3-4 day history of URI symptoms with worsening cough, shortness of breath and wheezing. Patient is not oxygen dependent at home however arrives hypoxic at 81% on room air requiring 3-4 L of oxygen to maintain saturations in the 90s. She wears a CPAP at night. She reports subjective fever and chills. No reported lower extremity edema. She has been coughing up frothy red sputum. No recent travel or surgery. EKG read and interpreted by Dr. Painting. Troponin negative. Leukocytosis of 14 with chest x-ray concerning for significant right upper lobe pneumonia. Patient also found to be hypokalemic at 3.4 and hyponatremic at 123. Sepsis protocol initiated although fluid bolus was held given her hyponatremia. BNP pending. IV steroids and antibiotics initiated in the ED. Lactate of 1. Admission discussed and recommended. Patient agrees. Case discussed between Dr. Painting and hospitalist and patient was also seen and evaluated by Dr. Painting. DIFFERENTIAL DX: Differential includes but not limited to pneumonia, sepsis, CHF exacerbation, COPD exacerbation, PE, ACS, asthma exacerbation, viral syndrome ED PROCEDURES: See lab and/or imaging results below ED COURSE: Patient initially seen and examined by myself. I discussed case immediately with Dr. Painting and reviewed EKG findings. He also is on examined patient. Presumed sepsis workup for possible pneumonia versus CHF exacerbation 2:40 p.m.: X-rays reviewed by myself, Dr. Painting and Dr. Max. Patient appears to have an extensive right upper lobe pneumonia. Leukocytosis of 14. Lactate of 1. Also notable for hypokalemia and hyponatremia at 123. Final radiology read pending. Will initiate Zosyn and admit to the hospital. Dr. Painting spoke to hospitalist CHIEF COMPLAINT: Shortness of breath, bloody sputum HPI: 62-year-old morbidly obese female with past medical history of asthma, hypertension, hypercholesterolemia, presents to the emergency department with 3 days of URI symptoms and increasing shortness of breath, wheezing and cough. Patient also reports fevers and chills. She reports she is compliant with her prescribed inhalers but these have not been helping her symptoms. She normally does not wear oxygen at home but does wear a CPAP machine at night. She does not report a history of CHF but apparently was taken off Lasix recently. Is unclear why she was taking this. She reports no recent travel, surgery, or history of DVT or PE. No asymmetric lower extremity swelling. She does not remember if she got a flu shot this year. No nausea or vomiting. She has never required intubation for asthma before. PAST MEDICAL HISTORY: Asthma, hypertension, mental health history See nurse/triage notes for additional history if applicable Pertinent Past Surgical History: Hysterectomy Family History: No family history of DVT or PE Social History: Denies smoking REVIEW OF SYSTEMS: All other systems negative Constitutional: Positive for fever, chills and appetite change. Eyes: No discharge, vision change ENT: No sore throat, positive for congestion, ear pain. Cardiovascular: No chest pain, no palpitations. Respiratory: Positive for cough and shortness of breath.] Gastrointestinal: No abdominal pain, no vomiting, diarrhea. Genitourinary: No hematuria, dysuria, flank pain, pelvic pain Musculoskeletal: No back pain, joint swelling, joint pain, myalgias. Skin: No rashes, color change. Neurological: No headache, dizziness, weakness. PHYSICAL EXAM: General Appearance: Alert, oriented, speaking in 2-3 word sentences, audible wheezing noted, hypoxic at 81% on arrival, tachypneic at 38, febrile. HEENT: TMs are clear bilaterally no perforation or FB, no injection, no evidence of serous or mucopurulent otitis. Oropharynx clear is no erythema or exudates, no tonsillar hypertrophy or asymmetry. Dentition without abnormality. Coughing frothy red sputum Eyes: PERRLA, no acute vision change, nystagmus, swelling, discharge, pain or photosensitivity. Conjunctiva pink, no pallor or injection Neck: Supple, nontender, no lymphadenopathy, no midline pain, FROM, no meningismus. Respiratory: Diffuse expiratory wheezing throughout Cardiac: Regular rate and rhythm, no murmurs or gallops. Gastrointestinal: [Abdomen is soft, nontender Neurological: [ Alert and oriented x 3, CN 2-12 grossly intact Skin: Warm, dry, no rashes, no nodules on palpation. Musculoskeletal: Extremities are symmetrical, full range of motion, no tenderness, deformity, swelling, or erythema. No pitting edema to lower extremities. No asymmetric calf pain or erythema or warmth Psychiatric: Patient is oriented X 3, there is no agitation. MEDICAL DECISION MAKING: Patient was seen independently. Secondary supervising physician at time of evaluation was Dr. Painting. Diagnosis: Acute right upper lobe infiltrate, hypoxia, hyponatremia. New, requires workup Summary: See Assessment and Plan for summary of ED visit Clinical lab tests: ordered / reviewed. Independent visualization of images, tracing, or specimens: Yes. Decision to obtain medical records or history from someone other than the patient: No Review / Summarize previous medical records: Reviewed prior chest x-ray images Discussed patient with another provider: Dr. Painting, hospitalist Patient Progress: Stable for admission. (Gian Kemp) Medical Decision Making: I did evaluate this patient independently. She does appear acutely ill an oxygen dependent. She has pink frothy sputum consistent with pulmonary edema. We discussed and agreed upon management plan and admission. (Dm Painting) - Diagnostics Imaging Results: Imaging Impressions Chest X-Ray 09/11/18 13:32 Impression: 1. Moderate consolidation/pneumonia right upper lobe and mild left lower lobe. Consider aspiration. - Objective Vital Signs: Initial Vital Signs Temperature (C) 37.3 C 09/11/18 13:28 Heart Rate 128 H 09/11/18 13:28 Respiratory Rate 36 H 09/11/18 13:28 Blood Pressure 120/69 09/11/18 13:28 O2 Sat (%) 81 L 09/11/18 13:28 O2 Delivery Mode Oxymizer O2 (L/minute) 8 Allergies/Adverse Reactions: lisinopril Allergy (Verified 09/11/18 15:52) Other-Enter Comments Home Medications: Medication Instructions Recorded Albuterol [Proventil Inhaler HFA 2 puffs IH Q4 PRN 04/17/15 (*)] Atorvastatin Calcium [Lipitor 20 20 mg PO DAILY 04/17/15 mg (*)] Cholecalciferol Vit D3 [Vitamin D3 5,000 units PO DAILY 04/17/15 (*)] Fluoxetine HCl [Prozac 40 mg] 80 mg PO DAILY 04/17/15 Fluticasone/Salmeter 500/50Mcg 1 puffs IH BID 04/17/15 [Advair 500/50 (*)] metFORMIN HCL [Glucophage 500 mg 500 mg PO BIDMEAL 04/17/15 (*)] Ipratropium/Albuterol [Duoneb (*)] 3 ml IH QID #20 deyvial 04/18/15 Bupropion HCl [Wellbutrin Xl] 300 mg PO DAILY 02/24/17 Montelukast Sodium [Singulair 10 10 mg PO DAILY 02/24/17 mg (*)] buPROPion XL [Wellbutrin 150mg XL] 150 mg PO DAILY 02/24/17 Herbals/Supplements -Info Only 1 ea PO DAILY 02/25/17 Cetirizine [ZyrTEC 10 mg (*)] 10 mg PO HS PRN 09/11/18 Gabapentin [Neurontin 300 MG (*)] 300 mg PO Q8 PRN 09/11/18 Losartan/Hydrochlorothiazide 1 each PO DAILY 09/11/18 [Losartan-Hctz 100-25 mg Tab] Ranitidine HCl [Zantac] 150 mg PO BID PRN 09/11/18 Terbinafine HCl [LamISIL 250 MG 250 mg PO AD 09/11/18 (*)] carBAMazepine [Carbamazepine] 200 mg PO BID 09/11/18 Laboratory Results: Laboratory Results 09/11/18 14:15 09/11/18 13:55 09/11/18 09/11/18 09/11/18 14:50 14:40 14:15 WBC RBC Hgb Hct MCV MCH MCHC RDW Plt Count MPV Neut % (Auto) Lymph % (Auto) Cascade % (Auto) Eos % (Auto) Baso % (Auto) Nucleat RBC Rel Count Absolute Neuts (auto) Absolute Lymphs (auto) Absolute Monos (auto) Absolute Eos (auto) Absolute Basos (auto) Absolute Nucleated RBC Immature Gran % Immature Gran # PT INR APTT VBG Lactic Acid Sodium Potassium Chloride Carbon Dioxide Anion Gap BUN Creatinine Estimated GFR Glucose Serum Osmolality Pending Calcium Magnesium 1.8 mg/dL mg/dL (1.6-2.3) Total Bilirubin Conjugated Bilirubin Unconjugated Bilirubin POC Troponin I 0.03 ng/mL ng/mL (0.00-0.08) NT-Pro-B Natriuret Pep Procalcitonin 0.62 ng/mL H ng/mL (0.02-0.10) Nasal Influenza A PCR NEGATIVE FOR FLU A (NEGATIVE) Nasal Influenza B PCR NEGATIVE FOR FLU B (NEGATIVE) 09/11/18 09/11/18 09/11/18 14:15 13:55 13:55 WBC 14.32 10^3/uL H 10^3/uL (3.80-9.50) RBC 4.36 10^6/uL 10^6/uL (4.18-5.33) Hgb 13.1 g/dL g/dL (12.6-16.3) Hct 38.2 % % (38.0-47.0) MCV 87.6 fL fL (81.5-99.8) MCH 30.0 pg pg (27.9-34.1) MCHC 34.3 g/dL g/dL (32.4-36.7) RDW 13.2 % % (11.5-15.2) Plt Count 230 10^3/uL 10^3/uL (150-400) MPV 9.6 fL fL (8.7-11.7) Neut % (Auto) 84.8 % H % (39.3-74.2) Lymph % (Auto) 6.6 % L % (15.0-45.0) Cascade % (Auto) 7.5 % % (4.5-13.0) Eos % (Auto) 0.0 % L % (0.6-7.6) Baso % (Auto) 0.1 % L % (0.3-1.7) Nucleat RBC Rel Count 0.0 % % (0.0-0.2) Absolute Neuts (auto) 12.13 10^3/uL H 10^3/uL (1.70-6.50) Absolute Lymphs (auto) 0.95 10^3/uL L 10^3/uL (1.00-3.00) Absolute Monos (auto) 1.07 10^3/uL H 10^3/uL (0.30-0.80) Absolute Eos (auto) 0.00 10^3/uL L 10^3/uL (0.03-0.40) Absolute Basos (auto) 0.02 10^3/uL 10^3/uL (0.02-0.10) Absolute Nucleated RBC 0.00 10^3/uL 10^3/uL (0-0.01) Immature Gran % 1.0 % % (0.0-1.1) Immature Gran # 0.15 10^3/uL H 10^3/uL (0.00-0.10) PT 13.3 SEC SEC (12.0-15.0) INR 0.99 (0.83-1.16) APTT 21.0 SEC L SEC (23.0-38.0) VBG Lactic Acid 1.0 mmol/L mmol/L (0.7-2.1) Sodium Potassium Chloride Carbon Dioxide Anion Gap BUN Creatinine Estimated GFR Glucose Serum Osmolality Calcium Magnesium Total Bilirubin Conjugated Bilirubin Unconjugated Bilirubin POC Troponin I NT-Pro-B Natriuret Pep Procalcitonin Nasal Influenza A PCR Nasal Influenza B PCR 09/11/18 13:55 WBC RBC Hgb Hct MCV MCH MCHC RDW Plt Count MPV Neut % (Auto) Lymph % (Auto) Cascade % (Auto) Eos % (Auto) Baso % (Auto) Nucleat RBC Rel Count Absolute Neuts (auto) Absolute Lymphs (auto) Absolute Monos (auto) Absolute Eos (auto) Absolute Basos (auto) Absolute Nucleated RBC Immature Gran % Immature Gran # PT INR APTT VBG Lactic Acid Sodium 123 mEq/L L mEq/L (135-145) Potassium 3.4 mEq/L L mEq/L (3.5-5.2) Chloride 87 mEq/L L mEq/L (97-110) Carbon Dioxide 24 mEq/l mEq/l (22-31) Anion Gap 12 mEq/L mEq/L (6-14) BUN 15 mg/dL mg/dL (7-23) Creatinine 0.7 mg/dL mg/dL (0.6-1.0) Estimated GFR > 60 Glucose 105 mg/dL H mg/dL (70-100) Serum Osmolality Calcium 8.8 mg/dL mg/dL (8.5-10.4) Magnesium Total Bilirubin 2.6 mg/dL H mg/dL (0.1-1.4) Conjugated Bilirubin 2.1 mg/dL H mg/dL (0.0-0.5) Unconjugated Bilirubin 0.5 mg/dL mg/dL (0.0-1.1) POC Troponin I NT-Pro-B Natriuret Pep 610 pg/mL H pg/mL (0-125) Procalcitonin Nasal Influenza A PCR Nasal Influenza B PCR Medications Given: Discontinued Medications Albuterol/Ipratropium (Duoneb) 3 ml IH EDNOW ONE Stop: 09/11/18 13:35 Last Admin: 09/11/18 14:32 Dose: 3 ml Sodium Chloride (Ns) 1,000 mls @ 0 mls/hr IV EDNOW ONE; Wide Open PRN Reason: Protocol Stop: 09/11/18 13:35 Last Admin: 09/11/18 14:32 Dose: 1,000 mls Piperacillin/Tazobactam/Dextrose (Zosyn (Premix)) 100 mls @ 200 mls/hr IV EDNOW ONE PRN Reason: Protocol Stop: 09/11/18 15:09 Last Admin: 09/11/18 15:31 Dose: 100 mls Methylprednisolone Sodium Succinate (Solu-Medrol) 125 mg IVP EDNOW ONE Stop: 09/11/18 13:35 Last Admin: 09/11/18 14:32 Dose: 125 mg Point of Care Test Results: Chemistry 09/11/18 14:50 POC Troponin I 0.03 ng/mL ng/mL (0.00-0.08) Departure - Departure Disposition: [facility]
[2018-09-11] MEDS ORDERED: IPRATROPIUM/ALBUTEROL 3 ML DEYVIAL ONE (13:43)
[2018-09-11 14:32] LABS: PLATELET COUNT 230 10^3/uL (150-400)
[2018-09-11] MEDS ORDERED: PIPERACILLIN/TAZO 4.5 GM/DEX 100 ML IV ONE (14:40)
[2018-09-11 14:41] LABS: INR 0.99 (0.83-1.16); PROTIME(PATIENT) 13.3 SEC (12.0-15.0)
[2018-09-11] MEDS ORDERED: PROTOCOL POTASSIUM 1 DOSE MISC PRN (16:08)
[2018-09-11] MEDS ORDERED: ACETAMINOPHEN 325 MG TAB PO PRN (16:10)
[2018-09-11] MEDS ORDERED: ONDANSETRON 4 MG/2 ML VIAL IVP PRN (16:10)
[2018-09-11] MEDS ORDERED: ONDANSETRON DISINTEGRATING 4 MG TAB PO PRN (16:10)
[2018-09-11] MEDS ORDERED: POTASSIUM CL 20 MEQ PKT PO ONE ×2 (16:13→19:45)
[2018-09-11] MEDS ORDERED: POTASSIUM CL 20 MEQ PKT PO SCH (16:15)
[2018-09-11] MEDS ORDERED: ALBUTEROL 3 ML DEYVIAL ONE (17:32)
[2018-09-11] MEDS ORDERED: ALBUTEROL 3 ML DEYVIAL IH PRN (17:36)
--- NOTE | 2018-09-11 18:33 | PDGENHP ---
<Sofia Bailey - Last Filed: 09/11/18 19:20> History and Physical - Chief Complaint Shortness of breath, wheezing, cough - History of Present Illness HPI: 62 y/o female with hx of asthma, depression, DM II, hypertension and hyperlipidemia presents to the emergency room with 3 days worth of upper respiratory symptoms w/ worsening productive cough (per pt, sputum is green/ yellow/blood-tinged), shortness of breath and wheezing. She is a poor historian. This is my first encounter with the pt who was seen in the ER, wearing an oxymizer 8L sating at 95%. She is only able to speak a few words and appears moderately in respiratory distress. She reports she usually is not on oxygen however today she was being delivered a CPAP machine and she was anxious because she would not be able to meet the delivery truck to retrieve the CPAP. She denies vomiting, nausea, chest pains or palpitations. History Information - Allergies/Home Medication List Allergies/Adverse Reactions: lisinopril Allergy (Verified 09/11/18 15:52) Other-Enter Comments Home Medications: Albuterol [Proventil Inhaler HFA (*)] 2 puffs IH Q4 PRN 04/17/15 [Last Taken ] Atorvastatin Calcium [Lipitor 20 mg (*)] 20 mg PO DAILY 04/17/15 [Last Taken ] Cholecalciferol Vit D3 [Vitamin D3 (*)] 5,000 units PO DAILY 04/17/15 [Last Taken 02/24/17] Fluoxetine HCl [Prozac 40 mg] 80 mg PO DAILY 04/17/15 [Last Taken 02/24/17] Fluticasone/Salmeter 500/50Mcg [Advair 500/50 (*)] 1 puffs IH BID 04/17/15 [ Last Taken 02/24/17] metFORMIN HCL [Glucophage 500 mg (*)] 500 mg PO BIDMEAL 04/17/15 [Last Taken ] Bupropion HCl [Wellbutrin Xl] 300 mg PO DAILY 02/24/17 [Last Taken 09/11/18] Montelukast Sodium [Singulair 10 mg (*)] 10 mg PO DAILY 02/24/17 [Last Taken ] buPROPion XL [Wellbutrin 150mg XL] 150 mg PO DAILY 02/24/17 [Last Taken 09/11/18 ] Herbals/Supplements -Info Only 1 ea PO DAILY 02/25/17 [Last Taken Unknown] Cetirizine [ZyrTEC 10 mg (*)] 10 mg PO HS PRN 09/11/18 [Last Taken Unknown] Gabapentin [Neurontin 300 MG (*)] 300 mg PO Q8 PRN 09/11/18 [Last Taken Unknown] Losartan/Hydrochlorothiazide [Losartan-Hctz 100-25 mg Tab] 1 each PO DAILY 09/11 [Last Taken Unknown] Ranitidine HCl [Zantac] 150 mg PO BID PRN 09/11/18 [Last Taken Unknown] Terbinafine HCl [LamISIL 250 MG (*)] 250 mg PO AD 09/11/18 [Last Taken Unknown] carBAMazepine [Carbamazepine] 200 mg PO BID 09/11/18 [Last Taken Unknown] I have personally reviewed and updated: family history, medical history, social history, surgical history - Past Medical History diabetes type 2, hypertension, hyperlipidemia, psychiatric history (depression) Additional medical history: Restless leg syndrome - Surgical History Reports: hysterectomy - Family History Positive for: non-pertinent - Social History Smoking Status: Never smoked Alcohol Use: None Drug Use: None Additional social history: working, lives independently Review of Systems Review of Systems: ROS: 10pt was reviewed & negative except for what was stated in HPI & below Physical Exam Physical Exam: Lab data and imaging were reviewed. Case discussed with admitting physician, Dr. Antony Daniels WBC: 14.32 Lactic acid: 1.0 Na: 123 K: 3.4 BUN/Cr: 15/0.7 Resp PCR negative CXR: Moderate consolidation/PNA right upper lobe and mild left lower lobe Temp Pulse Resp BP Pulse Ox 37.3 C 92 18 118/85 H 94 09/11/18 16:52 09/11/18 17:38 09/11/18 17:38 09/11/18 16:52 09/11/18 17:38 O2 (L/minute) 6 Constitutional: obese, uncomfortable Eyes: PERRL, anicteric sclera, EOMI Ears, Nose, Mouth, Throat: moist mucous membranes, hearing normal, ears appear normal, no oral mucosal ulcers Cardiovascular: regular rate and rhythym, no murmur, rub, or gallop, No edema Peripheral Pulses: 2+: dorsalis-pedis (R) (Radial 2+), dorsalis-pedis (L) ( Radial 2+) Respiratory: expiratory wheeze Gastrointestinal: normoactive bowel sounds, soft, non-tender abdomen, no palpable masses Genitourinary: no bladder fullness, no bladder tenderness Skin: warm, normal color, no rashes or abrasions, no fluctuance, no induration, No mottled Musculoskeletal: full muscle strength, no muscle tenderness, normal joint ROM, no joint effusions Neurologic: AAOx3, sensation intact bilaterally, CN II-XII Intact Psychiatric: not encephalopathic, thought process linear, anxious Lymph, Heme, Immunologic: no cervical LAD, no supraclavicular LAD Lab Data & Imaging Review 09/11/18 14:15 09/11/18 17:44 WBC 14.32 10^3/uL (3.80-9.50) H 09/11/18 14:15 RBC 4.36 10^6/uL (4.18-5.33) 09/11/18 14:15 Hgb 13.1 g/dL (12.6-16.3) 09/11/18 14:15 Hct 38.2 % (38.0-47.0) 09/11/18 14:15 MCV 87.6 fL (81.5-99.8) 09/11/18 14:15 MCH 30.0 pg (27.9-34.1) 09/11/18 14:15 MCHC 34.3 g/dL (32.4-36.7) 09/11/18 14:15 RDW 13.2 % (11.5-15.2) 09/11/18 14:15 Plt Count 230 10^3/uL (150-400) 09/11/18 14:15 MPV 9.6 fL (8.7-11.7) 09/11/18 14:15 Neut % (Auto) 84.8 % (39.3-74.2) H 09/11/18 14:15 Lymph % (Auto) 6.6 % (15.0-45.0) L 09/11/18 14:15 Beaver % (Auto) 7.5 % (4.5-13.0) 09/11/18 14:15 Eos % (Auto) 0.0 % (0.6-7.6) L 09/11/18 14:15 Baso % (Auto) 0.1 % (0.3-1.7) L 09/11/18 14:15 Nucleat RBC Rel Count 0.0 % (0.0-0.2) 09/11/18 14:15 Absolute Neuts (auto) 12.13 10^3/uL (1.70-6.50) H 09/11/18 14:15 Absolute Lymphs (auto) 0.95 10^3/uL (1.00-3.00) L 09/11/18 14:15 Absolute Monos (auto) 1.07 10^3/uL (0.30-0.80) H 09/11/18 14:15 Absolute Eos (auto) 0.00 10^3/uL (0.03-0.40) L 09/11/18 14:15 Absolute Basos (auto) 0.02 10^3/uL (0.02-0.10) 09/11/18 14:15 Absolute Nucleated RBC 0.00 10^3/uL (0-0.01) 09/11/18 14:15 Immature Gran % 1.0 % (0.0-1.1) 09/11/18 14:15 Immature Gran # 0.15 10^3/uL (0.00-0.10) H 09/11/18 14:15 PT 13.3 SEC (12.0-15.0) 09/11/18 13:55 INR 0.99 (0.83-1.16) 09/11/18 13:55 APTT 21.0 SEC (23.0-38.0) L 09/11/18 13:55 VBG Lactic Acid 1.0 mmol/L (0.7-2.1) 09/11/18 13:55 Sodium 123 mEq/L (135-145) L 09/11/18 13:55 Potassium 3.4 mEq/L (3.5-5.2) L 09/11/18 13:55 Chloride 87 mEq/L (97-110) L 09/11/18 13:55 Carbon Dioxide 24 mEq/l (22-31) 09/11/18 13:55 Anion Gap 12 mEq/L (6-14) 09/11/18 13:55 BUN 15 mg/dL (7-23) 09/11/18 13:55 Creatinine 0.7 mg/dL (0.6-1.0) 09/11/18 13:55 Estimated GFR > 60 09/11/18 13:55 Glucose 105 mg/dL (70-100) H 09/11/18 13:55 Serum Osmolality 265 mosmo/kg (280-297) L 09/11/18 14:15 Calcium 8.8 mg/dL (8.5-10.4) 09/11/18 13:55 Magnesium 1.8 mg/dL (1.6-2.3) 09/11/18 14:15 Total Bilirubin 2.6 mg/dL (0.1-1.4) H 09/11/18 13:55 Conjugated Bilirubin 2.1 mg/dL (0.0-0.5) H 09/11/18 13:55 Unconjugated Bilirubin 0.5 mg/dL (0.0-1.1) 09/11/18 13:55 POC Troponin I 0.03 ng/mL (0.00-0.08) 09/11/18 14:50 NT-Pro-B Natriuret Pep 610 pg/mL (0-125) H 09/11/18 13:55 Procalcitonin 0.62 ng/mL (0.02-0.10) H 09/11/18 14:15 Nasal Influenza A PCR NEGATIVE FOR FLU A (NEGATIVE) 09/11/18 14:40 Nasal Influenza B PCR NEGATIVE FOR FLU B (NEGATIVE) 09/11/18 14:40 Assessment & Plan Plan: 62 y/o female with hx of depression, asthma, hypertension, DM presents with 3 days worth of increasing SOB, wheezing and cough. 1. Acute hypoxemic respiratory failure w/ suspected pneumonia: Initially tachycardic, tachypneic, hypoxic. Afebrile. -Cont tele/pulse ox monitoring -Resp PCR panel negative -Blood cultures pending -Received duoneb/solu-medrol/zosyn in ED; continue Zosyn Q6H, duoneb tx, and solu-medrol Q6H. Consider transitioning to PO steroids in AM. -Checking legionella and strep AG urine -Cont o2 supplementation PRN 2. Asthma: see above. Duoneb tx and home inhalers. 3. Hyponatremia (123) -Serum osmolality low, checking urine sodium -Suspected SIADH w/anti-depressant medications. Most likely will fluid restrict once urine sodium results. -CBC in AM 4. Depression: on wellbutrin, carbamazepine, fluoxetine, gabapentin 5. Hypokalemia (3.4) -Initiated k replacement protocol -Received 40 meq of K today -CMP in AM 6. Diabetes: holding metformin while in hospital. Initiated ISS and TID glucose checks. Diet: ADA VTE ppx: SCDs Code: Full Dispo: Admit to obs <Antony Zhu - Last Filed: 09/12/18 07:22> History and Physical - History of Present Illness Review of Systems Review of Systems: Physical Exam Physical Exam: Temp Pulse Resp BP Pulse Ox 36.8 C 84 16 119/87 H 93 09/12/18 04:00 09/12/18 04:00 09/12/18 04:00 09/12/18 04:00 09/12/18 05:57 O2 (L/minute) 4 Lab Data & Imaging Review 09/12/18 03:32 09/12/18 03:32 WBC 15.75 10^3/uL (3.80-9.50) H 09/12/18 03:32 RBC 4.07 10^6/uL (4.18-5.33) L 09/12/18 03:32 Hgb 11.9 g/dL (12.6-16.3) L 09/12/18 03:32 Hct 35.4 % (38.0-47.0) L 09/12/18 03:32 MCV 87.0 fL (81.5-99.8) 09/12/18 03:32 MCH 29.2 pg (27.9-34.1) 09/12/18 03:32 MCHC 33.6 g/dL (32.4-36.7) 09/12/18 03:32 RDW 13.4 % (11.5-15.2) 09/12/18 03:32 Plt Count 232 10^3/uL (150-400) 09/12/18 03:32 MPV 9.7 fL (8.7-11.7) 09/12/18 03:32 Neut % (Auto) 88.9 % (39.3-74.2) H 09/12/18 03:32 Lymph % (Auto) 6.0 % (15.0-45.0) L 09/12/18 03:32 Beaver % (Auto) 4.1 % (4.5-13.0) L 09/12/18 03:32 Eos % (Auto) 0.0 % (0.6-7.6) L 09/12/18 03:32 Baso % (Auto) 0.2 % (0.3-1.7) L 09/12/18 03:32 Nucleat RBC Rel Count 0.0 % (0.0-0.2) 09/12/18 03:32 Absolute Neuts (auto) 14.00 10^3/uL (1.70-6.50) H 09/12/18 03:32 Absolute Lymphs (auto) 0.95 10^3/uL (1.00-3.00) L 09/12/18 03:32 Absolute Monos (auto) 0.64 10^3/uL (0.30-0.80) 09/12/18 03:32 Absolute Eos (auto) 0.00 10^3/uL (0.03-0.40) L 09/12/18 03:32 Absolute Basos (auto) 0.03 10^3/uL (0.02-0.10) 09/12/18 03:32 Absolute Nucleated RBC 0.00 10^3/uL (0-0.01) 09/12/18 03:32 Immature Gran % 0.8 % (0.0-1.1) 09/12/18 03:32 Immature Gran # 0.13 10^3/uL (0.00-0.10) H 09/12/18 03:32 PT 13.3 SEC (12.0-15.0) 09/11/18 13:55 INR 0.99 (0.83-1.16) 09/11/18 13:55 APTT 21.0 SEC (23.0-38.0) L 09/11/18 13:55 VBG Lactic Acid 1.0 mmol/L (0.7-2.1) 09/11/18 13:55 Sodium 126 mEq/L (135-145) L 09/12/18 03:32 Potassium 3.7 mEq/L (3.5-5.2) 09/12/18 03:32 Chloride 92 mEq/L (97-110) L 09/12/18 03:32 Carbon Dioxide 24 mEq/l (22-31) 09/12/18 03:32 Anion Gap 10 mEq/L (6-14) 09/12/18 03:32 BUN 23 mg/dL (7-23) 09/12/18 03:32 Creatinine 1.0 mg/dL (0.6-1.0) 09/12/18 03:32 Estimated GFR 57 09/12/18 03:32 Glucose 130 mg/dL (70-100) H 09/12/18 03:32 POC Glucose 153 mg/dL (70-100) H 09/11/18 22:57 Serum Osmolality 265 mosmo/kg (280-297) L 09/11/18 14:15 Calcium 8.6 mg/dL (8.5-10.4) 09/12/18 03:32 Magnesium 1.8 mg/dL (1.6-2.3) 09/11/18 14:15 Total Bilirubin 1.8 mg/dL (0.1-1.4) H 09/12/18 03:32 Conjugated Bilirubin 2.1 mg/dL (0.0-0.5) H 09/11/18 13:55 Unconjugated Bilirubin 0.5 mg/dL (0.0-1.1) 09/11/18 13:55 AST 55 IU/L (14-46) H 09/12/18 03:32 ALT 92 IU/L (9-52) H 09/12/18 03:32 Alkaline Phosphatase 233 IU/L (38-126) H 09/12/18 03:32 POC Troponin I 0.03 ng/mL (0.00-0.08) 09/11/18 14:50 NT-Pro-B Natriuret Pep 610 pg/mL (0-125) H 09/11/18 13:55 Total Protein 6.3 g/dL (6.3-8.2) 09/12/18 03:32 Albumin 3.1 g/dL (3.5-5.0) L 09/12/18 03:32 Procalcitonin 0.62 ng/mL (0.02-0.10) H 09/11/18 14:15 Ur Random Sodium < 5 mEq/L (30-90) L 09/11/18 18:45 Nasal Influenza A PCR NEGATIVE FOR FLU A (NEGATIVE) 09/11/18 14:40 Nasal Influenza B PCR NEGATIVE FOR FLU B (NEGATIVE) 09/11/18 14:40 Assessment & Plan Plan: Patient is a 62 year old female with asthma, TOSIN, DM, and MH history who presented with SOB. Abnormal CXR concerning for PNA, query aspiration. Patient not a particularly high aspiration risk. started on zosyn for broad coverage in ER. Examination notable for crackles and diminished breath sounds in right lung. Also noted to be hyponatremic. Plan to continue zosyn, check urine studies to elucidate further the etiology of her hyponatremia, and follow serum sodium closely. Other issues per Marivel Bailey NP
[2018-09-11] MEDS ORDERED: GABAPENTIN 300 MG CAP PO PRN (18:59)
[2018-09-11] MEDS ORDERED: D50W 25 GM/50 ML SYR IVP PRN (19:03)
[2018-09-11] MEDS: methylPREDNISolone SOD SUCC 125 MG/2 ML VIAL IVP SCH (20:55)
[2018-09-11] MEDS: carBAMazepine 200 MG TAB PO SCH (20:55)
[2018-09-11] MEDS ORDERED: FAMOTIDINE 20 MG TAB PO PRN (21:00)
[2018-09-11] MEDS: PIPERACILLIN/TAZO 4.5 GM/DEX 100 ML IV SCH (21:05)
[2018-09-11] MEDS: IPRATROPIUM/ALBUTEROL 3 ML DEYVIAL IH SCH (21:53)
[2018-09-11] MEDS: FLUTICASONE/SALMETER 500/50MCG DISKUS IH SCH (21:57)
[2018-09-12] MEDS: methylPREDNISolone SOD SUCC 125 MG/2 ML VIAL IVP SCH ×5 (00:54→23:04)
[2018-09-12] MEDS: PIPERACILLIN/TAZO 4.5 GM/DEX 100 ML IV SCH ×2 (03:47→09:19)
[2018-09-12 04:39] LABS: PLATELET COUNT 232 10^3/uL (150-400)
[2018-09-12] MEDS: IPRATROPIUM/ALBUTEROL 3 ML DEYVIAL IH SCH ×4 (05:16→21:11)
[2018-09-12] MEDS ORDERED: POTASSIUM CL 10 MEQ TAB PO ONE ×2 (08:45→22:33)
[2018-09-12] MEDS: INSULIN LISPRO 100 UNIT/ML SC SCH ×3 (08:48→17:37)
[2018-09-12] MEDS: ATORVASTATIN CALCIUM 20 MG TAB PO SCH (09:14)
[2018-09-12] MEDS: buPROPion XL 150 MG TAB PO SCH ×2 (09:15)
[2018-09-12] MEDS: carBAMazepine 200 MG TAB PO SCH ×2 (09:15→22:08)
[2018-09-12] MEDS: MONTELUKAST SODIUM 10 MG TAB PO SCH (09:16)
[2018-09-12] MEDS: CHOLECALCIFEROL VIT D3 1,000 UNITS TAB PO SCH (09:18)
[2018-09-12] MEDS: FLUoxetine 20 MG CAP PO SCH (09:19)
--- NOTE | 2018-09-12 09:58 | ASMTCMCOM ---
CM Note CM Note Notes: Pt is a 62 yo F who presents with pneumonia and hypoxia. Pt reports a history of depression and is currently linked at [facility] for counseling and has a prescriber. At this time PT/OT evals are pending. Pt lives in [facility]. CM to follow. Plan: TBD Date Signed: 09/12/2018 09:57 AM Electronically Signed By:JUDE Crowe
[2018-09-12] MEDS: FLUTICASONE/SALMETER 500/50MCG DISKUS IH SCH ×2 (10:19→21:11)
--- NOTE | 2018-09-12 11:09 | HOSPPROG ---
Hospitalist Progress Note Assessment/Plan: 62 yo F w asthma here w AHRF< CAP CAP: change to ceftriaxone azithro blood cx drawn cxr 4 years ago w nl RUL AHRF: 2/2 airspace disease asthma: agree w solumedrol scheduled nebs hyponatremia: chronic although worse hypovolemic continue IVF proph: lmwh dispo: inpt Subjective: cxr w dense RUL infiltrate Objective: Vital Signs Temp Pulse Resp BP Pulse Ox 36.7 C 92 20 127/81 H 93 09/12/18 08:00 09/12/18 10:07 09/12/18 10:07 09/12/18 08:00 09/12/18 10:07 Laboratory Results 09/12/18 03:32 09/12/18 03:32 09/11/18 09/12/18 09/13/18 05:59 05:59 05:59 Intake Total 500 Output Total 200 Balance 300 PT 13.3 SEC (12.0-15.0) 09/11/18 13:55 INR 0.99 (0.83-1.16) 09/11/18 13:55 - Physical Exam Constitutional: no apparent distress, appears nourished Eyes: PERRL, anicteric sclera Ears, Nose, Mouth, Throat: moist mucous membranes, hearing normal Cardiovascular: regular rate and rhythym, no murmur, rub, or gallop Respiratory: other (very decreased breath sounds in RUL diffuse wheezes and rhonchi), No no rales or rhonchi Gastrointestinal: normoactive bowel sounds, soft, non-tender abdomen Genitourinary: No lopez in urethra Skin: warm, normal color Musculoskeletal: full muscle strength, no muscle tenderness Neurologic: AAOx3 ICD10 Worksheet Patient Problems: Problems Problem Status Onset Hyponatremia Acute Nausea and vomiting Acute
--- NOTE | 2018-09-12 13:20 | PDMN ---
Medical Necessity Medical necessity: Change to IP, as of 09/12/18, per & MCG [id number]; los >2 mn for ongoing management of community-acquired pneumonia w/hypoxemia (81% on RA); requiring further monitoring, IV abx, IV Solu-Medrol & respiratory supportive care; hx asthma
[2018-09-12] MEDS: AZITHROMYCIN IV 500 MG in NS 250 ML IV SCH (14:24)
[2018-09-13] MEDS: IPRATROPIUM/ALBUTEROL 3 ML DEYVIAL IH SCH ×4 (05:22→21:43)
[2018-09-13] MEDS: FLUTICASONE/SALMETER 500/50MCG DISKUS IH SCH ×2 (05:22→21:43)
[2018-09-13] MEDS: methylPREDNISolone SOD SUCC 125 MG/2 ML VIAL IVP SCH ×3 (05:49→17:50)
[2018-09-13] MEDS ORDERED: POTASSIUM CL 10 MEQ TAB PO ONE (07:19)
[2018-09-13] MEDS: INSULIN LISPRO 100 UNIT/ML SC SCH ×3 (09:23→17:52)
[2018-09-13] MEDS: ATORVASTATIN CALCIUM 20 MG TAB PO SCH (09:29)
[2018-09-13] MEDS: CHOLECALCIFEROL VIT D3 1,000 UNITS TAB PO SCH (09:29)
[2018-09-13] MEDS: FLUoxetine 20 MG CAP PO SCH (09:29)
[2018-09-13] MEDS: carBAMazepine 200 MG TAB PO SCH ×2 (09:29→21:31)
[2018-09-13] MEDS: MONTELUKAST SODIUM 10 MG TAB PO SCH (09:30)
--- NOTE | 2018-09-13 09:33 | HOSPPROG ---
Hospitalist Progress Note Assessment/Plan: 62 yo F w asthma here w AHRF< CAP CAP: change to ceftriaxone azithro blood cx drawn cxr 4 years ago w nl RUL AHRF: 2/2 airspace disease remains on 5 L asthma: agree w solumedrol scheduled nebs hyponatremia: chronic although worse hypovolemic continue IVF proph: lmwh dispo: inpt she states she needs to leave to address getting to work, picking up prescriptions, paying rent, etc I acknowledge the importance of these issues but she is unsafe to leave and will need to leave AMA if she wishes i will provide her w oxygen and prescriptions should she choose AMA dc Subjective: remains on 5L. anxious to leave, citing various concerns around work and money Objective: Vital Signs Temp Pulse Resp BP Pulse Ox 36.8 C 91 16 122/81 H 91 L 09/13/18 08:00 09/13/18 08:00 09/13/18 08:00 09/13/18 08:00 09/13/18 08:00 Laboratory Results 09/13/18 03:30 09/12/18 09/13/18 09/14/18 05:59 05:59 05:59 Intake Total 1160 Output Total 1600 Balance -440 PT 13.3 SEC (12.0-15.0) 09/11/18 13:55 INR 0.99 (0.83-1.16) 09/11/18 13:55 - Physical Exam Constitutional: no apparent distress, appears nourished Eyes: PERRL, anicteric sclera Ears, Nose, Mouth, Throat: moist mucous membranes, hearing normal Cardiovascular: regular rate and rhythym, no murmur, rub, or gallop Respiratory: other (rhonchorous b/l w crackles on R) Gastrointestinal: normoactive bowel sounds, soft, non-tender abdomen Genitourinary: No lopez in urethra Skin: warm, normal color Musculoskeletal: full muscle strength Neurologic: AAOx3 ICD10 Worksheet Patient Problems: Problems Problem Status Onset Hyponatremia Acute Nausea and vomiting Acute
[2018-09-13] MEDS: buPROPion XL 150 MG TAB PO SCH ×2 (10:16→10:17)
[2018-09-13] MEDS: AZITHROMYCIN IV 500 MG in NS 250 ML IV SCH (11:00)
[2018-09-14] MEDS: methylPREDNISolone SOD SUCC 125 MG/2 ML VIAL IVP SCH ×3 (00:11→13:44)
[2018-09-14] MEDS: IPRATROPIUM/ALBUTEROL 3 ML DEYVIAL IH SCH ×4 (06:08→20:51)
[2018-09-14] MEDS ORDERED: IOPAMIDOL (ISOVUE 370) 100 ML BTL IV ONE (10:07)
[2018-09-14] MEDS: INSULIN LISPRO 100 UNIT/ML SC SCH ×3 (10:20→19:07)
[2018-09-14] MEDS: MONTELUKAST SODIUM 10 MG TAB PO SCH (10:22)
[2018-09-14] MEDS: FLUoxetine 20 MG CAP PO SCH (10:23)
[2018-09-14] MEDS: CHOLECALCIFEROL VIT D3 1,000 UNITS TAB PO SCH (10:23)
[2018-09-14] MEDS: carBAMazepine 200 MG TAB PO SCH ×2 (10:23→21:15)
[2018-09-14] MEDS: ATORVASTATIN CALCIUM 20 MG TAB PO SCH (10:24)
[2018-09-14] MEDS: buPROPion XL 150 MG TAB PO SCH ×2 (10:37)
[2018-09-14] MEDS: FLUTICASONE/SALMETER 500/50MCG DISKUS IH SCH ×2 (13:12→20:51)
[2018-09-14] MEDS: AZITHROMYCIN IV 500 MG in NS 250 ML IV SCH (13:38)
[2018-09-14] MEDS: LOSARTAN POTASSIUM 50 MG TAB PO SCH (13:49)
--- NOTE | 2018-09-14 14:40 | HOSPPROG ---
Hospitalist Progress Note Assessment/Plan: * Pneumonia with sepsis (POA) -suspect Strep pneumo given + urinary antigen -IV ceftriaxone + azithro * Acute Respiratory failure -still very high O2 requirement 5L -visibly tachypneic with increased work of breathing * Asthma exacerbation -steroids, scheduled nebs * Increased LFT -may be due to sepsis -check abd US * Hyponatremia - improving with IVF -holding HCTZ * HTN -restart Cozaar * Morbid Obesity BMI 48 * TOSIN -CPAP equipment being delivered to her home soon Subjective: A little better Objective: Vital Signs Temp Pulse Resp BP Pulse Ox 36.5 C 84 18 130/75 H 93 09/14/18 03:45 09/14/18 13:54 09/14/18 13:54 09/14/18 13:54 09/14/18 13:54 Laboratory Results 09/14/18 03:15 09/13/18 09/14/18 09/15/18 05:59 05:59 05:59 Intake Total 1160 1121 Output Total 1600 950 Balance -440 171 PT 13.3 SEC (12.0-15.0) 09/11/18 13:55 INR 0.99 (0.83-1.16) 09/11/18 13:55 CXR viewed, my personal interpretation is - severe RUL PNA, possible mutilobar CT chest - RUL PNA, no mass - Physical Exam Constitutional: no apparent distress, appears nourished, not in pain Cardiovascular: regular rate and rhythym, no murmur, rub, or gallop Respiratory: reduced air movement, expiratory wheeze, respiratory distress, rhonchi Gastrointestinal: normoactive bowel sounds, soft, non-tender abdomen, no palpable masses Skin: no rashes or abrasions, no fluctuance, no induration Neurologic: AAOx3, sensation intact bilaterally Psychiatric: interacting appropriately, not anxious, not encephalopathic, thought process linear ICD10 Worksheet Patient Problems: Problems Problem Status Onset Hyponatremia Acute Nausea and vomiting Acute
--- NOTE | 2018-09-14 15:34 | ASMTCMCOM ---
CM Note CM Note Notes: 09/14/2018 Case Management Note Discussed pt during rounds. Pt continues with IV abx. Met w/pt to discuss PT recommendation for home care. Pt declined. Pt unable to meet homebound criteria d/t work. Pt insurance will require a 30 day stay in SNF. Pt declined SNF as a discharge option. Pt reports assistant case manager from [employer] assisted with disability application with state of [place]. Left VM with Mariusz at [facility] inquiring if pt had open assessement with them. Pt contacted cheryl parrish about late rent payment. Pt declined assistance from case management. Pt contacted employer to notify of ongoing admission to hospital. Case Management d/c poc: to be determined. Case Management to follow. Date Signed: 09/14/2018 03:33 PM Electronically Signed By:Rasheeda Lund RN
[2018-09-14] MEDS: ENOXAPARIN 40 MG/0.4 ML SYR SC SCH ×2 (18:40→21:15)
[2018-09-14] MEDS: predniSONE 20 MG TAB PO SCH (18:41)
[2018-09-14] MEDS: CARBOXYMETHYLCELLULOSE 0.5% 0.4 ML DROPERETTE EACHEYE PRN (21:25)
[2018-09-15 04:50] LABS: PLATELET COUNT 388 10^3/uL (150-400)
[2018-09-15] MEDS: IPRATROPIUM/ALBUTEROL 3 ML DEYVIAL IH SCH ×4 (05:32→21:20)
[2018-09-15] MEDS: INSULIN LISPRO 100 UNIT/ML SC SCH ×3 (08:29→17:45)
[2018-09-15] MEDS ORDERED: IOPAMIDOL (ISOVUE-300) 100 ML BTL ONE (08:58)
[2018-09-15] MEDS: predniSONE 20 MG TAB PO SCH ×2 (09:04→17:44)
[2018-09-15] MEDS: CHOLECALCIFEROL VIT D3 1,000 UNITS TAB PO SCH (09:05)
[2018-09-15] MEDS: MONTELUKAST SODIUM 10 MG TAB PO SCH (09:05)
[2018-09-15] MEDS: ATORVASTATIN CALCIUM 20 MG TAB PO SCH (09:05)
[2018-09-15] MEDS: LOSARTAN POTASSIUM 50 MG TAB PO SCH (09:05)
[2018-09-15] MEDS: buPROPion XL 150 MG TAB PO SCH ×2 (09:05)
[2018-09-15] MEDS: FLUoxetine 20 MG CAP PO SCH (09:05)
[2018-09-15] MEDS: carBAMazepine 200 MG TAB PO SCH ×2 (09:09→21:53)
[2018-09-15] MEDS: ENOXAPARIN 40 MG/0.4 ML SYR SC SCH ×2 (09:10→21:52)
[2018-09-15] MEDS: FLUTICASONE/SALMETER 500/50MCG DISKUS IH SCH ×2 (10:39→21:20)
[2018-09-15] MEDS: AZITHROMYCIN IV 500 MG in NS 250 ML IV SCH (10:49)
--- NOTE | 2018-09-15 13:21 | ASMTCMCOM ---
CM Note CM Note Notes: Pt discussed in rounds. A small tumor was found on pt's pancreas; she will be referred to an out-pt specialist for this. She will also be d/ozzie home on oxygen; she was not previously using this. Concerns re pt returning home independently given her overall weakness, but pt continues to decline home health and/or SNF Rehab. D/C anticipated Monday or Monday. D/C Plan: Anticipate independent Date Signed: 09/15/2018 01:20 PM Electronically Signed By:Sary Chaudhry
--- NOTE | 2018-09-15 16:09 | HOSPPROG ---
Hospitalist Progress Note Assessment/Plan: * Pneumonia with sepsis (POA) -suspect Strep pneumo given + urinary antigen -IV ceftriaxone + azithro * Acute Respiratory failure -still very high O2 requirement 5L -visibly tachypneic with increased work of breathing * Asthma exacerbation -steroids, scheduled nebs -still very wheezy/SOB * Increased LFT -? due to sepsis * Hyponatremia - improving with IVF -holding HCTZ * HTN -restart Cozaar * Morbid Obesity BMI 48 * TOSIN -CPAP equipment being delivered to her home soon * Small pancreatic tumor -possible neuroendocrine -outpatient follow-up with GI -endoscopic US vs. MRCP in 3 months Subjective: Still very SOB Objective: Vital Signs Temp Pulse Resp BP Pulse Ox 36.4 C 115 H 28 H 126/72 H 85 L 09/15/18 11:52 09/15/18 12:09 09/15/18 12:09 09/15/18 11:52 09/15/18 12:09 Laboratory Results 09/15/18 03:30 09/15/18 03:30 09/14/18 09/15/18 09/16/18 05:59 05:59 05:59 Intake Total 1121 1350 585 Output Total 950 950 Balance 171 400 585 PT 13.3 SEC (12.0-15.0) 09/11/18 13:55 INR 0.99 (0.83-1.16) 09/11/18 13:[address] - possible neuroendocrine tumor of pancreas CT discussed with Dr. Hernandez tele reviewed - sinus tachy - Physical Exam Constitutional: obese, uncomfortable Cardiovascular: regular rate and rhythym, no murmur, rub, or gallop Respiratory: expiratory wheeze, inspiratory crackles, respiratory distress, rhonchi Gastrointestinal: normoactive bowel sounds, soft, non-tender abdomen, no palpable masses Skin: no rashes or abrasions, no fluctuance, no induration Neurologic: AAOx3, sensation intact bilaterally Psychiatric: interacting appropriately, not anxious, not encephalopathic, thought process linear ICD10 Worksheet Patient Problems: Problems Problem Status Onset Hyponatremia Acute Nausea and vomiting Acute
[2018-09-15] MEDS: CARBOXYMETHYLCELLULOSE 0.5% 0.4 ML DROPERETTE EACHEYE PRN (21:52)
[2018-09-16] MEDS: IPRATROPIUM/ALBUTEROL 3 ML DEYVIAL IH SCH ×4 (05:42→22:50)
[2018-09-16] MEDS: INSULIN LISPRO 100 UNIT/ML SC SCH ×3 (07:51→16:16)
[2018-09-16] MEDS: LOSARTAN POTASSIUM 50 MG TAB PO SCH (08:54)
[2018-09-16] MEDS: predniSONE 20 MG TAB PO SCH ×2 (08:54→17:29)
[2018-09-16] MEDS: CHOLECALCIFEROL VIT D3 1,000 UNITS TAB PO SCH (08:54)
[2018-09-16] MEDS: FLUoxetine 20 MG CAP PO SCH (08:54)
[2018-09-16] MEDS: MONTELUKAST SODIUM 10 MG TAB PO SCH (08:54)
[2018-09-16] MEDS: ENOXAPARIN 40 MG/0.4 ML SYR SC SCH ×2 (08:55→20:16)
[2018-09-16] MEDS: carBAMazepine 200 MG TAB PO SCH ×2 (08:55→20:15)
[2018-09-16] MEDS: ATORVASTATIN CALCIUM 20 MG TAB PO SCH (08:55)
[2018-09-16] MEDS: buPROPion XL 150 MG TAB PO SCH ×3 (08:55→09:17)
[2018-09-16] MEDS: FLUTICASONE/SALMETER 500/50MCG DISKUS IH SCH ×2 (10:01→22:49)
[2018-09-16] MEDS: AZITHROMYCIN IV 500 MG in NS 250 ML IV SCH (10:41)
--- NOTE | 2018-09-16 15:24 | HOSPPROG ---
Hospitalist Progress Note Assessment/Plan: * Pneumonia with sepsis (POA) -suspect Strep pneumo given + urinary antigen -IV ceftriaxone -stop azithro - s/p 5 days * Acute Respiratory failure -O2 needs slowly improving * Asthma exacerbation -steroids, scheduled nebs -improving * Increased LFT -? due to sepsis * Hyponatremia - improving with IVF -holding HCTZ * HTN -restart Cozaar * Morbid Obesity BMI 48 * TOSIN -CPAP equipment being delivered to her home soon * Small pancreatic tumor -possible neuroendocrine -outpatient follow-up with GI -endoscopic US vs. MRCP in 3 months Dispo - home tomorrow if continues to improve Subjective: Better today Objective: Vital Signs Temp Pulse Resp BP Pulse Ox 37.1 C 93 20 133/73 H 98 09/16/18 11:45 09/16/18 11:45 09/16/18 11:45 09/16/18 11:45 09/16/18 11:45 Laboratory Results 09/15/18 03:30 09/15/18 03:30 09/15/18 09/16/18 09/17/18 05:59 05:59 05:59 Intake Total 1350 1005 Output Total 950 950 Balance 400 55 PT 13.3 SEC (12.0-15.0) 09/11/18 13:55 INR 0.99 (0.83-1.16) 09/11/18 13:55 - Physical Exam Constitutional: no apparent distress, appears nourished, not in pain Cardiovascular: regular rate and rhythym, no murmur, rub, or gallop Respiratory: no respiratory distress, no rales or rhonchi, clear to auscultation Gastrointestinal: normoactive bowel sounds, soft, non-tender abdomen, no palpable masses Skin: no rashes or abrasions, no fluctuance, no induration Neurologic: AAOx3, sensation intact bilaterally Psychiatric: interacting appropriately, not anxious, not encephalopathic, thought process linear ICD10 Worksheet Patient Problems: Problems Problem Status Onset Hyponatremia Acute Nausea and vomiting Acute
[2018-09-17 03:32] LABS: HIV TYPE 1 AND 2 NEGATIVE (NEGATIVE)
[2018-09-17 04:16] LABS: PLATELET COUNT 421 10^3/uL (150-400)
[2018-09-17] MEDS: IPRATROPIUM/ALBUTEROL 3 ML DEYVIAL IH SCH ×2 (05:49→11:08)
[2018-09-17 07:46] VITALS: BP 147/88
[2018-09-17] MEDS: CARBOXYMETHYLCELLULOSE 0.5% 0.4 ML DROPERETTE EACHEYE PRN (08:53)
[2018-09-17] MEDS: MONTELUKAST SODIUM 10 MG TAB PO SCH (08:54)
[2018-09-17] MEDS: LOSARTAN POTASSIUM 50 MG TAB PO SCH (08:54)
[2018-09-17] MEDS: ENOXAPARIN 40 MG/0.4 ML SYR SC SCH (08:54)
[2018-09-17] MEDS: ATORVASTATIN CALCIUM 20 MG TAB PO SCH (08:54)
[2018-09-17] MEDS: predniSONE 20 MG TAB PO SCH (08:54)
[2018-09-17] MEDS: carBAMazepine 200 MG TAB PO SCH (08:54)
[2018-09-17] MEDS: CHOLECALCIFEROL VIT D3 1,000 UNITS TAB PO SCH (08:54)
[2018-09-17] MEDS: FLUoxetine 20 MG CAP PO SCH (08:54)
[2018-09-17] MEDS: INSULIN LISPRO 100 UNIT/ML SC SCH (08:57)
[2018-09-17] MEDS: FLUTICASONE/SALMETER 500/50MCG DISKUS IH SCH (09:00)
--- NOTE | 2018-09-17 10:08 | PDHOMEO2F ---
Home Oxygen Face to Face Home Orders: I certify that a physician or a nurse practitioner or physician's care management assistant has had a [id number] encounter with this patient on the date of this order due to the diagnosis listed, which relates to the primary reason the patient requires home oxygen. Alternative treatments have been tried, or considered, and deemed ineffective. It is anticipated that supplemental oxygen will result in improvement with treatment. Home oxygen qualifying diagnosis: obesity hypoventilation, asthma SpO2 on room air (%): 85 Frequency of home oxygen needed: continuous Home oxygen liters per minute: 3 Home oxygen delivery device: nasal cannula Concentrator: Yes E-tanks for mobility and back up: Yes If ordering portable O2, is the patient mobile in the home?: Yes I certify that, based on these findings, the home oxygen is medically necessary for this patient for the following length of time. Length of time home oxygen needed: 99 years
[2018-09-17] MEDS: buPROPion XL 150 MG TAB PO SCH (10:20)
--- NOTE | 2018-09-17 13:37 | ASMTLACE ---
LACE Length of stay for Answers: 4-6 days current admission Acuity / Level of Answers: Yes Care: Did the patient have an inpatient admission? Comorbidities - select Answers: Chronic pulmonary disease all that apply Congestive heart failure Diabetes (uncontrolled or controlled) Opioid dependence / Chronic pain Other Notes: HTN; Hx of PE # of Emergency department Answers: 1-2 visits in the last 6 months Social determinants Answers: Mental health diagnosis (anxiety, depression, pers onality disorders, etc.) Score: 21 Date Signed: 09/17/2018 01:36 PM Electronically Signed By:Rasheeda Lund RN
--- NOTE | 2018-09-17 13:40 | ASDISCHSUM ---
Discharge Information Plan Status:Home with No Needs Medically Cleared to Leave:09/16/2018 Discharge Date:09/17/2018 12:36 PM CM D/C Disposition:Home, Routine, Self-Care ADT D/C Disposition:Home Health Service Projected Discharge Date:09/17/2018 12:36 PM Transportation at D/C:Friend Discharge Delay Reason: Follow-Up Date:09/17/2018 12:36 PM Discharge Slot: Final Diagnosis: Placement Information Patient Contact Information Contact Name:ISHAAN Relationship:Daughter Address: Work Phone: City:[place] Alternate Phone: [facility]/Zip Code:[place] [address] Email: Financial Information Financial Class:Medicaid Primary Plan Desc:MEDICA[employer] HE[employer] [place] IP Primary Plan Number:[id number] Secondary Plan Desc: Secondary Plan Number: Assessment Information LACE LACE Length of stay for Answers: 4-6 days current admission Acuity / Level of Answers: Yes Care: Did the patient have an inpatient admission? Comorbidities - select Answers: Chronic pulmonary disease all that apply Congestive heart failure Diabetes (uncontrolled or controlled) Opioid dependence / Chronic pain Other Notes: HTN; Hx of PE # of Emergency department Answers: 1-2 visits in the last 6 months Social determinants Answers: Mental health diagnosis (anxiety, depression, pers onality disorders, etc.) Score: 21 Date Signed: 09/17/2018 01:36 PM Electronically Signed By:Rasheeda Lund RN [facility] CM Progress Note CM Note CM Note Notes: Pt is a 62 yo F who presents with pneumonia and hypoxia. Pt reports a history of depression and is currently linked at [facility] for counseling and has a prescriber. At this time PT/OT evals are pending. Pt [place] in [place] [facility] CM to follow. Plan: TBD Date Signed: 09/12/2018 09:57 AM Electronically Signed By:JUDE Crowe [facility] CM Progress Note CM Note CM Note Notes: 09/14/2018 Case Management Note Discussed pt during rounds. Pt continues with IV abx. Met w/pt to discuss PT recommendation for home care. Pt declined. Pt unable to meet homebound criteria d/t work. Pt insurance will require a 30 day stay in SNF. Pt declined SNF as a discharge option. Pt reports case investigator from [facility] [employer] assisted with disability application with [employer]. Left VM with Mariusz at [facility] inquiring if pt had open assessement with them. Pt contacted cheryl [facility] about late rent payment. Pt declined assistance from case management. Pt contacted employer to notify of ongoing admission to hospital. Case Management d/c poc: to be determined. Case Management to follow. Date Signed: 09/14/2018 03:33 PM Electronically Signed By:Rasheeda Lund RN [facility] CM Progress Note CM Note CM Note Notes: Pt discussed in rounds. A small tumor was found on pt's pancreas; she will be referred to an out-pt specialist for this. She will also be d/ozzie home on oxygen; she was not previously using this. Concerns re pt returning home independently given her overall weakness, but pt continues to decline home health and/or SNF Rehab. D/C anticipated Monday or Monday. D/C Plan: Anticipate independent Date Signed: 09/15/2018 01:20 PM Electronically Signed By:Sary Chaudhry Case Management Discharge Plan Note Case Management Discharge Discharge Order Complete? Answers: Yes Patient to Obtain Answers: via Family Medications Transportation Arranged Answers: Family/Friends Discharge Comments Notes: 09/17/2018 Case Management Note Arranged appointment with [facility] for September 20 at 9:[address] Pierce (pt PCP) Pt refused home care because of homebound requirement, pt unable to miss work. Family transported home. Case Management d/c poc: independent with follow up as directed. Date Signed: 09/17/2018 01:39 PM Electronically Signed By:Rasheeda Lund RN Intervention Information
--- NOTE | 2018-09-17 17:53 | GDS ---
[f rep st] DISCHARGE SUMMARY DISCHARGE DIAGNOSES: 1. Pneumonia with sepsis present on admission, probable Streptococcus pneumoniae. 2. Acute respiratory failure. 3. Asthma exacerbation. 4. Hyponatremia. 5. Hypertension. 6. Morbid obesity. Body mass index 48. 7. Obstructive sleep apnea. 8. 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 HISTORY: Ivonne is a 62-year-old female, who presented with severe respiratory difficulty and hypoxe ebony, consistent with acute respiratory failure. Her chest x-ray showed a significant infiltrate, con sistent with pneumonia. She met sepsis criteria. She was very ill on presentation. She was requiri ng high amounts of oxygen. Her blood cultures were negative but her Streptococcus pneumoniae urinary antigen was positive so this is the likely bacterial origin. She was treated with IV ceftriaxone an d azithromycin. She received a full 7 days of IV ceftriaxone during this hospitalization and antibio tics are complete. Her oxygen needs slowly improve but she continues to need home oxygen at discharg e. She may have an element of obesity hypoventilation syndrome. Her asthma was exacerbating severel y and she required IV steroids, eventually transitioning to oral prednisone. We will do a rapid pred nisone taper post discharge. Incidentally noted on imaging is a small pancreatic tumor which is being read by radiology as a possi ble neuroendocrine tumor. She does need outpatient followup with Gastroenterology, either endoscopic ultrasound versus MRCP in 3 months. She presented with hyponatremia. This improved with IV fluids. We held her hydrochlorothiazide. He r blood pressure seems adequately controlled at this time on Cozaar alone. DISCHARGE MEDICATIONS: Please see computerized record for full detailed list. New medications: 1. Prednisone 40 mg x2 days, then 20 mg x2 days, then off. 2. Duo nebs 4 times a day as needed. 3. Her losartan hydrochlorothiazide combination tablet to be discontinued and she was given a prescr iption for losartan 100 mg p.o. daily alone. ADDITIONAL DISCHARGE INSTRUCTIONS: 1. Outpatient sleep study for sleep apnea. 2. Outpatient followup with Gastroenterology for further evaluation of the small pancreatic tumor. 3. Repeat laboratory studies with primary care, chem-7 and LFTs which were elevated probably due to sepsis. She will see [facility] in 3-5 days. 4. Home oxygen arranged. Greater than 30 minutes' time spent in arranging this discharge. Patient was seen and examined by me on the day of discharge. /[id number]/MODL
--- NOTE | 2018-09-18 13:33 | CPEKG ---
Test Reason : OPEN Blood Pressure : / mmHG Vent. Rate : 115 BPM Atrial Rate : 115 BPM P-R Int : 132 ms QRS Dur : 105 ms QT Int : 354 ms P-R-T Axes : 060 031 047 degrees QTc Int : 490 ms Sinus tachycardia LAE, consider biatrial enlargement LVH with secondary repolarization abnormality Minimal ST elevation, inferior leads Borderline prolonged QT interval Confirmed by Dm Painting ([id number]) on 09/18/2018 1:33:02 PM Referred By: Dm Painting Confirmed By:Dm Painting
== END 2018-09-17 12:36 | disposition home or self-care (01) | DRG 720 ==
LOC: F2W 16:35 → OBSVTOIN 09-12 10:41
PROVIDERS: ADMIT Internal Medicine; ATTEND Internal Medicine
DX: A40.3 Sepsis due to Streptococcus pneumoniae (principal); J96.00 Acute respiratory failure, unspecified whether with hypoxia or hypercapnia; C25.9 Malignant neoplasm of pancreas, unspecified; J18.8 Other pneumonia, unspecified organism; J45.901 Unspecified asthma with (acute) exacerbation; E87.1 Hypo-osmolality and hyponatremia; E66.2 Morbid (severe) obesity with alveolar hypoventilation; I10 Essential (primary) hypertension; E78.00 Pure hypercholesterolemia, unspecified; E11.9 Type 2 diabetes mellitus without complications; Z68.42 Body mass index [BMI] 45.0-49.9, adult
CPT/HCPCS: 84484-ER; 87449-90; 92610-GN; 96374; 97110-GP; 97116-GP; 97161-GP; 97166-GO; 97535-GO; G0378; J0456; J0696; J1650; J1815; J2543; J2930; J7512; J7613; Q9967